=== PATIENT | female | born 1930 | race Caucasian/White ===

== ENCOUNTER 2018-05-08 16:26 | Inpatient (IN) ==
[2018-05-08] MEDS ORDERED: 0.9 % Sodium Chloride 500 ML IVC ONE (16:55)
--- NOTE | 2018-05-08 17:21 | Emergency Department Note ---
Disposition Clinical Impression: Influenza Disposition: Admitted As Inpatient Condition: Fair Forms: ED Satisfaction Letter Time of Disposition: 18:48 General Adult HPI - General Chief complaint: ED Upper Respiratory Infection Stated complaint: Flu Like Symptoms Time Seen by Provider: 05/08/18 16:27 Source: patient, EMS Limitations: no limitations Nursing Notes Reviewed: Yes Vital Signs Reviewed: Yes - History of Present Illness HPI Narrative: Patient is an 88-year-old female presenting to [facility] ED for one week history of malaise, nausea/vomiting/diarrhea productive cough. Patient states that she was seen at this facility by her primary care edu randall on May 04 and was diagnosed with upper respiratory infection for which she was given azithromycin. Patient states since this time her symptoms have gotten worse and that she is unable to keep any food down at this point. She will examination the patient is sitting upright in hospital but she is awake, alert, engaged conversation answering questions appropriately. Patient is noncyanotic, nondiaphoretic, in no acute distress, and no overt focal neurological deficits appreciated. Patient states that she has no past medical history, no surgical history, no known drug allergies. In addition to the symptoms listed above, patient denies headaches, vision change, tinnitus, new neck or back pain, chest pain/shortness of breath, abdominal pains, numbness and paresthesias in the extremities, or difficulty with ambulation. Onset (ago): week(s) Location: abdomen Radiation: non-radiation Pain Scale: 0 - Related Data Allergies Allergy/AdvReac Type Severity Reaction Status Date / Time No Known Allergies Allergy Verified 05/08/18 16:32 All systems ED: reviewed and negative except as stated. Review of Systems: As Per HPI Past Medical History - Past Medical History Source: patient, obtained from family Medical history: Reports: arthritis, dementia, hypertension, osteoporosis, other Psychiatric history: Reports: no psych history - Social History Smoking Status: Never smoker Smokeless Tobacco Status: No Alcohol use: Reports: none Drug use: Reports: none Physical Exam - General Limitations: no limitations General appearance: alert, in no apparent distress - Head Head exam: atraumatic, normocephalic, normal inspection - Eye Eye exam: Present: normal appearance, PERRL, EOMI. Absent: scleral icterus - Neck Neck exam: Present: normal inspection, trachea midline - Respiratory Respiratory exam: Present: normal lung sounds bilaterally. Absent: respiratory distress, wheezes, stridor, accessory muscle use, prolonged expiratory phase - Cardiovascular Cardiovascular exam: Present: regular rate, normal rhythm, normal heart sounds, +S1, +S2. Absent: systolic murmur, diastolic murmur, JVD, +S3, +S4 - Abdominal Exam Abdominal exam: Present: soft, Non-Tender, normal bowel sounds. Absent: tenderness, distention, guarding, rebound, rigidity - Extremities Exam Extremities exam: Present: normal inspection. Absent: pedal edema - Neurological Exam Neurological exam: Present: alert, oriented X3 - Psychiatric Psychiatric exam: Present: normal affect, normal mood - Skin Skin exam: Present: warm, dry, intact, normal color. Absent: cyanosis, diaphoresis, erythema, pallor, mottled Course Course Narrative: CBC, BMP, troponin, chest x-ray, urinalysis, rapid flu swab will be performed in order to assess for potential underlying pathology. Patient will be given 500 mL of 0.9 normal saline for fluid hydration. Vital Signs Temperature 101.3 F H 05/08/18 16:32 Pulse Rate 85 05/08/18 16:32 Respiratory Rate 14 05/08/18 16:32 Blood Pressure 133/79 05/08/18 16:32 O2 Sat by Pulse Oximetry 97 05/08/18 16:32 Temperature 101.3 F H 05/08/18 16:32 Pulse Rate 85 05/08/18 16:32 Respiratory Rate 14 05/08/18 16:32 Blood Pressure 133/79 05/08/18 16:32 O2 Sat by Pulse Oximetry 97 05/08/18 16:32 Oxygen Delivery Oxygen Delivery Room Air Medical Decision Making - [facility] Narrative Medical decision making narrative: Patient positive for influenza as well as urinary tract infection Patient laboratory and imaging values otherwise otherwise unremarkable for acute pathology. Patient will be admitted to [facility] service for fluid hydration and further evaluation and management of influenza. Patient will be started on vancomycin for antibiotic coverage for potential coinfection/superinfection with Staphylococcus aureus bacteria. Patient started on 1 g of Rocephin for management of UTI. Admission planning discussed at length with patient and family members and they verbalized their understanding and agreement this plan. Patient is intermittently medically stable time of admission. - Lab Data Lab results reviewed: Yes I reviewed the patient's lab results. Result diagrams: 05/08/18 17:06 05/08/18 17:06 Lab Results 05/08/18 05/08/18 Range/Units 17:06 17:06 WBC 5.4 (4.3-11.1) K/mcL RBC 4.47 (3.82-4.97) M/mcL Hgb 12.6 (11.5-15.4) g/dL Hct 38.8 (35.3-44.9) % MCV 86.8 (83.0-100.0) fL MCH 28.2 (28.0-33.3) pg MCHC 32.5 (31.6-35.5) g/dL RDW 13.6 (11.5-14.5) % Plt Count 232 (140-400) K/mcL MPV 9.6 (9.4-12.4) fL Immature Gran % 0.4 (0-4) % Seg Neutrophils % 72.4 % Lymphocytes % 16.9 % Monocytes % 9.9 % Eosinophils % 0.2 % Basophils % 0.2 % Neutrophils # 3.9 (1.6-8.9) K/mcL Lymphocytes # 0.9 (0.6-4.6) K/mcL Monocytes # 0.5 (0.0-1.3) K/mcL Eosinophils # 0.0 (0.0-0.6) K/mcL Basophils # 0.0 (0.0-0.2) K/mcL Sodium 131 L (136-145) mEq/L Potassium 4.1 (3.5-5.1) mEq/L Chloride 99 (98-107) mEq/L Carbon Dioxide 25 (23-29) mEq/L BUN 27 H (8-23) mg/dL Creatinine 1.08 (0.60-1.20) mg/dL Est GFR ( Amer) 58 L (> 60) Est GFR (Non-Af Amer) 48 L (> 60) BUN/Creatinine Ratio 25 (6-26) Glucose 120 H (70-105) mg/dL Calculated Osmolality 278 L (280-300) Calcium 10.2 (8.6-10.3) mg/dL Troponin I < 0.03 (< 0.04) ng/mL - Radiology Data Radiology results reviewed: Yes I reviewed the patient's radiology results. Chest X-Ray 05/08/18 16:49 IMPRESSION: No acute findings. D/ / Roshan Wolff MD / Roshan Wolff MD Interpreting Provider: Roshan Wolff MD
[2018-05-08 17:23] LABS: Basophils % 0.2 %; Eosinophils % 0.2 %; Hematocrit 38.8 % (35.3-44.9); Hemoglobin 12.6 g/dL (11.5-15.4); Immature Granulocytes % 0.4 % (0-4); Lymphocytes # 0.9 K/mcL (0.6-4.6); Lymphocytes % 16.9 %; Mean Corpuscular HGB Conc 32.5 g/dL (31.6-35.5); Mean Corpuscular Hemoglobin 28.2 pg (28.0-33.3); Mean Corpuscular Volume 86.8 fL (83.0-100.0); Mean Platelet Volume 9.6 fL (9.4-12.4); Monocytes # 0.5 K/mcL (0.0-1.3); Monocytes % 9.9 %; Neutrophils # 3.9 K/mcL (1.6-8.9); Platelet Count 232 K/mcL (140-400); Red Blood Count 4.47 M/mcL (3.82-4.97); Red Cell Distribution Width 13.6 % (11.5-14.5); Segmented Neutrophils % 72.4 %
[2018-05-08 17:44] LABS: BUN/Creatinine Ratio 25 (6-26); Blood Urea Nitrogen 27 mg/dL (8-23); Calcium 10.2 mg/dL (8.6-10.3); Carbon Dioxide 25 mEq/L (23-29); Chloride 99 mEq/L (98-107); Glucose 120 mg/dL (70-105); Osmolality,Calculated 278 (280-300); Potassium 4.1 mEq/L (3.5-5.1); Sodium 131 mEq/L (136-145); Troponin I < 0.03 ng/mL (< 0.04); eGFR For Non-African Americans 48 (> 60)
[2018-05-08 18:38] LABS: Bilirubin,Urine Negative (Negative); Blood,Urine Negative (Negative); Clarity,Urine Clear (Clear); Color,Urine Yellow (Yellow); Glucose,Urine (UA) Normal (Normal); Ketones,Urine Negative (Negative); Leukocyte Esterase,Urine Moderate (Negative); Nitrite,Urine Positive (Negative); Protein,Urine Trace mg/dL (Neg-Trace); Specific Gravity,Urine 1.012 (1.010-1.025); Urobilinogen,Urine Normal (Normal)
[2018-05-08 18:42] LABS: Bacteria,Urine Moderate per hpf (None-Few); Hyaline Casts,Urine None Seen per lpf (None-Few); RBC,Urine 0-3 per hpf (0-3); Squamous Epithelial Cell,Urine Moderate per lpf (None-Few); WBC,Urine 15-30 per hpf (0-3)
[2018-05-08] MEDS ORDERED: Naloxone 0.4 MG/ML INJ IVP PRN (18:42)
[2018-05-08] MEDS ORDERED: cefTRIAXone 1,000 MG in Water for inj. (sterile) 20 ML 10 ML IVP ONE (18:45)
--- NOTE | 2018-05-08 18:49 | Emergency Department Note ---
Disposition Clinical Impression: Influenza A UTI (urinary tract infection) Qualifiers: Urinary tract infection type: site unspecified Hematuria presence: without hematuria Qualified Code(s): N39.0 - Urinary tract infection, site not specified Disposition: Admitted As Inpatient Condition: Good Referrals: Shakeel Cazares DO [Primary Care Provider] - Forms: ED Satisfaction Letter General Adult HPI - General Chief complaint: ED Upper Respiratory Infection Stated complaint: Flu Like Symptoms Time Seen by Provider: 05/08/18 16:27 Source: patient, EMS Limitations: no limitations - History of Present Illness Location: abdomen Pain Scale: 0 - Related Data Allergies Allergy/AdvReac Type Severity Reaction Status Date / Time No Known Allergies Allergy Verified 05/08/18 16:32 Past Medical History - Past Medical History Medical history: Reports: arthritis, dementia, hypertension, osteoporosis, other Psychiatric history: Reports: no psych history - Social History Smoking Status: Never smoker Smokeless Tobacco Status: No Alcohol use: Reports: none Drug use: Reports: none Physical Exam - General Limitations: no limitations General appearance: alert, in no apparent distress Course Vital Signs Temperature 101.3 F H 05/08/18 16:32 Pulse Rate 85 05/08/18 16:32 Respiratory Rate 14 05/08/18 16:32 Blood Pressure 133/79 05/08/18 16:32 O2 Sat by Pulse Oximetry 97 05/08/18 16:32 Temperature 101.3 F H 05/08/18 16:32 Pulse Rate 85 05/08/18 16:32 Respiratory Rate 14 05/08/18 16:32 Blood Pressure 133/79 05/08/18 16:32 O2 Sat by Pulse Oximetry 97 05/08/18 16:32 Oxygen Delivery Oxygen Delivery Room Air Medical Decision Making - Lab Data Result diagrams: 05/08/18 17:06 05/08/18 17:06 Lab Results 05/08/18 05/08/18 05/08/18 Range/Units 17:06 17:06 18:18 WBC 5.4 (4.3-11.1) K/mcL RBC 4.47 (3.82-4.97) M/mcL Hgb 12.6 (11.5-15.4) g/dL Hct 38.8 (35.3-44.9) % MCV 86.8 (83.0-100.0) fL MCH 28.2 (28.0-33.3) pg MCHC 32.5 (31.6-35.5) g/dL RDW 13.6 (11.5-14.5) % Plt Count 232 (140-400) K/mcL MPV 9.6 (9.4-12.4) fL Immature Gran % 0.4 (0-4) % Seg Neutrophils % 72.4 % Lymphocytes % 16.9 % Monocytes % 9.9 % Eosinophils % 0.2 % Basophils % 0.2 % Neutrophils # 3.9 (1.6-8.9) K/mcL Lymphocytes # 0.9 (0.6-4.6) K/mcL Monocytes # 0.5 (0.0-1.3) K/mcL Eosinophils # 0.0 (0.0-0.6) K/mcL Basophils # 0.0 (0.0-0.2) K/mcL Sodium 131 L (136-145) mEq/L Potassium 4.1 (3.5-5.1) mEq/L Chloride 99 (98-107) mEq/L Carbon Dioxide 25 (23-29) mEq/L BUN 27 H (8-23) mg/dL Creatinine 1.08 (0.60-1.20) mg/dL Est GFR ( Amer) 58 L (> 60) Est GFR (Non-Af Amer) 48 L (> 60) BUN/Creatinine Ratio 25 (6-26) Glucose 120 H (70-105) mg/dL Calculated Osmolality 278 L (280-300) Calcium 10.2 (8.6-10.3) mg/dL Troponin I < 0.03 (< 0.04) ng/mL Urine Color Yellow (Yellow) Urine Clarity Clear (Clear) Urine pH 7.0 (5.0-8.0) pH Units Ur Specific [place] 1.012 (1.010-1.025) Urine Protein Trace (Neg-Trace) mg/dL Urine Glucose (UA) Normal (Normal) mg/dL Urine Ketones Negative (Negative) mg/dL Urine Blood Negative (Negative) Urine Nitrite Positive A (Negative) Urine Bilirubin Negative (Negative) Urine Urobilinogen Normal (Normal) mg/dL Ur Leukocyte Esterase Moderate H (Negative) Urine Microscopic RBC 0-3 (0-3) per hpf Urine Microscopic WBC 15-30 H (0-3) per hpf Ur Squamous Epith Cells Moderate H (None-Few) per lpf Urine Bacteria Moderate H (None-Few) per hpf Hyaline Casts None Seen (None-Few) per lpf Ur Culture Indicated? YES A (NO) Attestation Statement - Attestation Attestation: I examined this patient and my medical decision-making was reviewed with the Resident Physician. I agree with the documented findings, disposition and treatment plan as described except to the extent set forth below. 88 edward old female present to the ED with complaints of fever and weakness and states taht she has been on ABX for UTI and bronchits and not improving IT apperas she is flu positive and has UTI. We will place her on vanco and rocephin therapy and admit to medicine.
--- NOTE | 2018-05-08 18:58 | Internal Med History&Physical ---
Date of Encounter: 05/08/18 Time of Encounter: 18:50 Internal Medicine - H&P: HPI Chief complaint: coughing, fevers, nausea and vomiting for a couple of days History of present illness: Ms. Peña is a 88 year old female with pmh of hypertension, dyslipidemia, dementia presenting with complaints of coughing, fevers, nausea, vomiting and diarrhea for one week duration. Patient had been at her usual state of her health per her daughter went to a resutaurant over the weekend and began to cough on friday. Symptoms progressed to involve, nausea, vomiting and diarrhea. She went to her PCP who prescribed a z kings which she took for the last 3 days but her symptoms did not resolve. She comes in today with fevers and worsening cough. she denies any abdominal. 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 In the ER, she had a temp of 101 and influenza A swab was positive. she is being admitted for further management Past Med Surg Social Fam HX - Past Medical History Medical history: arthritis, dementia, hypertension, osteoporosis, other Psychiatric history: no psych history - Social History Smoking Status: Never smoker Smokeless Tobacco Status: No Alcohol use: none Drug use: none Internal Medicine - H&P: Meds Allergy/AdvReac Type Severity Reaction Status Date / Time No Known Allergies Allergy Verified 05/08/18 16:32 All Systems PM: A 10-system review of systems was performed and is negative for pertinent findings except as documented above in the HPI. - Constitutional Constitutional: lethargy, malaise, no chills, no night sweats - EENT Eyes: no change in vision, no discharge, no pain, no photophobia Ears: no ear discharge, no ear pain, no tinnitus Nose, mouth and throat: no dysphagia, no nasal discharge, no neck pain, no sore throat - Cardiovascular Cardiovascular ROS IM: no chest pain, no diaphoresis, no dyspnea, no lightheadedness, no palpitations, no syncope - Respiratory Respiratory: cough, no dyspnea, no wheezing, no excessive phlegm production - Gastrointestinal Gastrointestinal: diarrhea, no abdominal pain, no hematemesis, no hematochezia, no melena, no nausea, no vomiting - Genitourinary Genitourinary: no change in urinary stream, no dysuria, no flank pain, no hematuria - Musculoskeletal Musculoskeletal ROS IM: no numbness, no tingling - Integumentary Integumentary IM: no rash, no unusual bruising - Neurological Neurological ROS: no confusion, no convulsions, no focal weakness, no numbness, no tingling, no tremor(s) - Hematologic/Lymphatic Hematologic/Lymphatic: no easy bruising - Constitutional Vitals: Temp Pulse Resp BP Pulse Ox 101.3 F H 85 14 133/79 97 05/08/18 16:32 05/08/18 16:32 05/08/18 16:32 05/08/18 16:32 05/08/18 16:32 Exam: NAD - Head Head exam: Present: atraumatic, normocephalic - Eye Eye exam: Present: PERRL, conjuntiva pink, sclera anicteric Pupils: Present: PERRL - Neck Neck exam general surgery: Present: supple, trachea midline. Absent: lymphadenopathy - Respiratory Respiratory exam: Present: CTAB. Absent: accessory muscle use, rales, rhonchi, wheezes - Cardiovascular Cardiovascular exam: Present: RRR, +S1, +S2. Absent: diastolic murmur, gallop, rubs, systolic murmur - GI/Abdominal GI/Abdominal exam: Present: normal bowel sounds, soft, no peritoneal signs. Absent: distended, tenderness - Extremities Exam Extremities exam: Present: warm, radial pulses palpable and symmetrical. Absent: calf tenderness, cyanotic, pedal edema - Neurological Exam Neurological exam: Present: CN II-XII intact, oriented X3, no focal deficits. Absent: pronater drift, facial droop, speech deficit - Skin Skin exam: Present: dry, intact Internal Med - H&P Results - Labs CBC & Chem 7: 05/08/18 17:06 05/08/18 17:06 Labs: Short CBC 05/08/18 Range/Units 17:06 WBC 5.4 (4.3-11.1) K/mcL Hgb 12.6 (11.5-15.4) g/dL Hct 38.8 (35.3-44.9) % Plt Count 232 (140-400) K/mcL Neutrophils # 3.9 (1.6-8.9) K/mcL BMP 05/08/18 17:06 Sodium 131 L Potassium 4.1 Chloride 99 Carbon Dioxide 25 BUN 27 H Creatinine 1.08 Glucose 120 H Calcium 10.2 Cardiac Enzymes 05/08/18 Range/Units 17:06 Troponin I < 0.03 (< 0.04) ng/mL Urine 05/08/18 Range/Units 18:18 Urine Color Yellow (Yellow) Urine Clarity Clear (Clear) Urine pH 7.0 (5.0-8.0) pH Units Ur Specific [place] 1.012 (1.010-1.025) Urine Protein Trace (Neg-Trace) mg/dL Urine Glucose (UA) Normal (Normal) mg/dL - Impressions ITS Impressions Chest X-Ray 05/08/18 16:49 IMPRESSION: No acute findings. D/ / Roshan Wolff MD / Roshan Wolff MD Interpreting Provider: Roshan Wolff MD - Assessment and plan (1) Influenza A Current Visit: Yes Status: Acute Assessment and plan: Pt comes in with fevers, nausea, vomiting , coughing and weakness and was recently treated with antibiotics for bronchitis/ UTI Nasal swab came back positive for influenza A. Will start on oseltamivir. Pt was febrile up to 102 so will obtain blood cultures and cover empirically with zosyn in case she has a brewing infection (2) UTI (urinary tract infection) Current Visit: Yes Status: Acute Assessment and plan: Urinalysis showed mutliple WBCs. Continue zosyn. Follow up blood and urine cultures Qualifiers: Urinary tract infection type: site unspecified Hematuria presence: without hematuria Qualified Code(s): N39.0 - Urinary tract infection, site not specified (3) Fever Current Visit: Yes Status: Acute Assessment and plan: Pt febrile up to 102 possibly 2/2 to influenza but r/o sepsis started on zosyn. follow blood and urine cultures. D/C antibiotics if cultures negative Qualifiers: Qualified Code(s): R50.9 - Fever, unspecified (4) Hypertension Current Visit: Yes Status: Acute Assessment and plan: Continue lisinopril and metoprolol Qualifiers: Hypertension type: essential hypertension Qualified Code(s): I10 - Essential (primary) hypertension (5) Dementia Current Visit: Yes Status: Acute Assessment and plan: Continue aricept and namenda Qualifiers: Qualified Code(s): F03.90 - Unspecified dementia without behavioral disturbance (6) DVT prophylaxis Current Visit: Yes Status: Acute Assessment and plan: Heparin sc - Time Spent With Patient Total time spent is greater than 50% in coordination of care (as documented) at patient's floor/unit and/or counseling patient:
[2018-05-08] MEDS ORDERED: Acetaminophen 325 MG TABLET PO PRN (19:23)
[2018-05-08] MEDS ORDERED: Ondansetron 4 MG/2 ML VIAL IVP PRN (19:23)
[2018-05-08] MEDS: 0.9 % Sodium Chloride 1,000 ML IVC SCH (19:24)
[2018-05-08] MEDS: Piperacillin/Tazobactam 3.375 GM in 0.9 % Sodium Chloride Mini Bag 100 ML IVPB SCH (19:25)
[2018-05-08] MEDS: traZODone 50 MG TABLET PO SCH (21:30)
[2018-05-08] MEDS: Oseltamivir Phosphate 30 MG CAPSULE PO SCH (21:30)
[2018-05-09] MEDS: Piperacillin/Tazobactam 3.375 GM in 0.9 % Sodium Chloride Mini Bag 100 ML IVPB SCH ×3 (03:22→21:24)
[2018-05-09] MEDS: 0.9 % Sodium Chloride 1,000 ML IVC SCH ×2 (04:31→15:11)
[2018-05-09 04:45] LABS: Basophils % 0.2 %; Eosinophils % 0.2 %; Hematocrit 33.4 % (35.3-44.9); Immature Granulocytes % 0.2 % (0-4); Lymphocytes # 1.7 K/mcL (0.6-4.6); Lymphocytes % 32.5 %; Mean Corpuscular HGB Conc 32.6 g/dL (31.6-35.5); Mean Corpuscular Hemoglobin 28.2 pg (28.0-33.3); Mean Corpuscular Volume 86.3 fL (83.0-100.0); Mean Platelet Volume 9.8 fL (9.4-12.4); Monocytes # 0.6 K/mcL (0.0-1.3); Monocytes % 11.1 %; Platelet Count 203 K/mcL (140-400); Red Blood Count 3.87 M/mcL (3.82-4.97); Red Cell Distribution Width 13.6 % (11.5-14.5); Segmented Neutrophils % 55.8 %
[2018-05-09 04:51] LABS: Hemoglobin 10.9 g/dL (11.5-15.4)
[2018-05-09 05:03] LABS: BUN/Creatinine Ratio 23 (6-26); Blood Urea Nitrogen 21 mg/dL (8-23); Calcium 9.4 mg/dL (8.6-10.3); Carbon Dioxide 23 mEq/L (23-29); Chloride 104 mEq/L (98-107); Glucose 105 mg/dL (70-105); Magnesium 1.6 mg/dL (1.6-2.6); Osmolality,Calculated 281 (280-300); Phosphorous 2.1 mg/dL (2.7-4.5); Potassium 3.8 mEq/L (3.5-5.1); Sodium 134 mEq/L (136-145); eGFR For Non-African Americans 57 (> 60)
--- NOTE | 2018-05-09 08:45 | Internal Med Progress Note ---
Hospitalist Progress Note - Encounter Date of Encounter: 05/09/18 Time of Encounter: 11:00 - Subjective Interval History: Patient is a 88-year-old female with a past medical history significant for dementia brought in by family due to nausea/vomiting/diarrhea and weakness found to be positive for influenza A in addition to concerns for UTI with pyuria on urinalysis; cultures pending - Exam Vitals: Temp Pulse Resp BP Pulse Ox 98.7 F 74 15 131/74 91 05/09/18 08:13 05/09/18 08:13 05/09/18 08:13 05/09/18 08:13 05/09/18 08:13 Exam: Gen.: Nonacute distress, alert ENT: Mucosal membranes moist Respiratory: Patient with bilateral rhonchi Cardiovascular: Normal S1 and S2 regular rate rhythm no murmurs rubs or gallops Abdomen: Soft, nontender and nondistended with positive bowel sounds Extremities: No lower extremity edema Skin: Normal color - Assessment and Plan (1) Influenza A Current Visit: Yes Status: Acute Assessment and Plan: Patient with MAXIMUM TEMPERATURE of 101.3 in the ER positive for influenza A Will continue Tamiflu started in the ER and supportive care (2) UTI (urinary tract infection) Current Visit: Yes Status: Acute Assessment and Plan: Urinalysis showed mutliple WBCs and patient with MAXIMUM TEMPERATURE of 101.3 Will continue zosyn; cultures pending (3) Hypertension Current Visit: Yes Status: Acute Assessment and Plan: Continue lisinopril and metoprolol (4) Dementia Current Visit: Yes Status: Acute Assessment and Plan: Continue aricept and namenda (5) HLD (hyperlipidemia) Current Visit: Yes Status: Acute Assessment and Plan: Continue statin - Time Spent with Patient Total time spent is greater than 50% in coordination of care (as documented) at patient's floor/unit and/or counseling patient: Internal Medicine: Result - Labs CBC & Chem 7: 05/09/18 04:14 05/09/18 04:14 Labs: Short CBC 05/08/18 05/09/18 Range/Units 17:06 04:14 WBC 5.4 5.3 (4.3-11.1) K/mcL Hgb 12.6 10.9 L D (11.5-15.4) g/dL Hct 38.8 33.4 L (35.3-44.9) % Plt Count 232 203 (140-400) K/mcL Neutrophils # 3.9 3.0 (1.6-8.9) K/mcL BMP 05/08/18 05/09/18 17:06 04:14 Sodium 131 L 134 L Potassium 4.1 3.8 Chloride 99 104 Carbon Dioxide 25 23 BUN 27 H 21 Creatinine 1.08 0.93 Glucose 120 H 105 Calcium 10.2 9.4 Cardiac Enzymes 05/08/18 Range/Units 17:06 Troponin I < 0.03 (< 0.04) ng/mL Urine 05/08/18 Range/Units 18:18 Urine Color Yellow (Yellow) Urine Clarity Clear (Clear) Urine pH 7.0 (5.0-8.0) pH Units Ur Specific [place] 1.012 (1.010-1.025) Urine Protein Trace (Neg-Trace) mg/dL Urine Glucose (UA) Normal (Normal) mg/dL - Impressions Impressions Chest X-Ray 05/08/18 16:49 IMPRESSION: No acute findings. D/ / Roshan Wolff MD / Roshan Wolff MD Interpreting Provider: Roshan Wolff MD Consult Discharge Plan - Plan Referrals: Shakeel Cazares DO [Primary Care Provider] - (2) UTI (urinary tract infection) Qualifiers: Urinary tract infection type: site unspecified Hematuria presence: without hematuria Qualified Code(s): N39.0 - Urinary tract infection, site not specified (3) Hypertension Qualifiers: Hypertension type: essential hypertension Qualified Code(s): I10 - Essential (primary) hypertension (4) Dementia Qualifiers: Qualified Code(s): F03.90 - Unspecified dementia without behavioral disturbance
[2018-05-09] MEDS: Oseltamivir Phosphate 30 MG CAPSULE PO SCH ×2 (10:12→21:25)
[2018-05-09] MEDS: Lisinopril 20 MG TABLET PO SCH (10:12)
[2018-05-09 11:58] LABS: Adenovirus Not Detected (Not Detect); Bordetella Pertussis Not Detected (Not Detect); Chlamydophila pneumoniae Not Detected (Not Detect); Coronavirus 229E Not Detected (Not Detect); Coronavirus HKU1 Not Detected (Not Detect); Coronavirus NL63 Not Detected (Not Detect); Coronavirus OC43 Not Detected (Not Detect); Human Metapneumovirus Not Detected (Not Detect); Human Rhinovirus/Enterovirus Not Detected (Not Detect); Influenza A Subtype 2009 H1 Not Detected (Not Detect); Influenza A Untypeable Not Detected (Not Detect); Influenza B Not Detected (Not Detect); Mycoplasma pneumoniae Not Detected (Not Detect); Parainfluenza Virus 1 Not Detected (Not Detect); Parainfluenza Virus 2 Not Detected (Not Detect); Parainfluenza Virus 3 Not Detected (Not Detect); Parainfluenza Virus 4 Not Detected (Not Detect); Respiratory Syncytial Virus Not Detected (Not Detect)
[2018-05-09] MEDS: *HR* Heparin 5,000 UNIT/ML VIAL SQ SCH ×2 (14:07→21:25)
[2018-05-09] MEDS: traZODone 50 MG TABLET PO SCH (21:24)
[2018-05-10] MEDS: *HR* Heparin 5,000 UNIT/ML VIAL SQ SCH ×3 (05:58→21:27)
[2018-05-10] MEDS: Piperacillin/Tazobactam 3.375 GM in 0.9 % Sodium Chloride Mini Bag 100 ML IVPB SCH ×3 (05:58→18:20)
[2018-05-10] MEDS: Oseltamivir Phosphate 30 MG CAPSULE PO SCH ×2 (08:58→21:27)
[2018-05-10] MEDS: Lisinopril 20 MG TABLET PO SCH (08:58)
--- NOTE | 2018-05-10 10:18 | Internal Med Progress Note ---
Hospitalist Progress Note - Encounter Date of Encounter: 05/10/18 Time of Encounter: 11:00 - Subjective Interval History: Patient is a 88-year-old female with a past medical history significant for dementia brought in by family due to nausea/vomiting/diarrhea and weakness found to be positive for influenza A in addition to concerns for UTI with pyuria on urinalysis; cultures pending - Exam Vitals: Temp Pulse Resp BP Pulse Ox 98.4 F 70 17 137/75 93 05/10/18 07:17 05/10/18 07:17 05/10/18 07:17 05/10/18 07:17 05/10/18 07:17 Exam: Gen.: Nonacute distress, alert ENT: Mucosal membranes moist Respiratory: Patient with bilateral rhonchi Cardiovascular: Normal S1 and S2 regular rate rhythm no murmurs rubs or gallops Abdomen: Soft, nontender and nondistended with positive bowel sounds Extremities: No lower extremity edema Skin: Normal color - Assessment and Plan (1) Influenza A Current Visit: Yes Status: Acute Assessment and Plan: Patient with MAXIMUM TEMPERATURE of 101.3 in the ER positive for influenza A She has been afebrile over the last 24 hours Continue day 2 of Tamiflu in addition to supportive care (2) UTI (urinary tract infection) Current Visit: Yes Status: Acute Assessment and Plan: Urinalysis showed mutliple WBCs and patient with MAXIMUM TEMPERATURE of 101.3 on admission Urine cultures in progress so far showing gram-negative rods; blood cultures negative to date Will continue day 2 of Zosyn (3) Hypertension Current Visit: Yes Status: Acute Assessment and Plan: Continue lisinopril and metoprolol (4) Dementia Current Visit: Yes Status: Acute Assessment and Plan: Continue aricept and namenda (5) HLD (hyperlipidemia) Current Visit: Yes Status: Acute Assessment and Plan: Continue statin DVT Prophylaxis: Heparin subcutaneous - Time Spent with Patient Total time spent is greater than 50% in coordination of care (as documented) at patient's floor/unit and/or counseling patient: Internal Medicine: Result - Labs CBC & Chem 7: 05/10/18 15:20 05/10/18 15:20 Consult Discharge Plan - Plan Referrals: Shakeel Cazares, [Primary Care Provider] - (2) UTI (urinary tract infection) Qualifiers: Urinary tract infection type: site unspecified Hematuria presence: without hematuria Qualified Code(s): N39.0 - Urinary tract infection, site not specified (3) Hypertension Qualifiers: Hypertension type: essential hypertension Qualified Code(s): I10 - Essential (primary) hypertension (4) Dementia Qualifiers: Qualified Code(s): F03.90 - Unspecified dementia without behavioral disturbance
[2018-05-10] MEDS: 0.9 % Sodium Chloride 1,000 ML IVC SCH (12:05)
[2018-05-10 15:59] LABS: Basophils % 0.4 %; Eosinophils # 0.1 K/mcL (0.0-0.6); Eosinophils % 2.2 %; Hemoglobin 10.3 g/dL (11.5-15.4); Immature Granulocytes % 0.2 % (0-4); Lymphocytes % 44.2 %; Mean Corpuscular HGB Conc 32.2 g/dL (31.6-35.5); Mean Corpuscular Hemoglobin 28.1 pg (28.0-33.3); Mean Corpuscular Volume 87.2 fL (83.0-100.0); Mean Platelet Volume 9.9 fL (9.4-12.4); Monocytes # 0.4 K/mcL (0.0-1.3); Monocytes % 9.2 %; Platelet Count 170 K/mcL (140-400); Red Blood Count 3.67 M/mcL (3.82-4.97); Red Cell Distribution Width 13.8 % (11.5-14.5); Segmented Neutrophils % 43.8 %
[2018-05-10 16:20] LABS: BUN/Creatinine Ratio 21 (6-26); Blood Urea Nitrogen 17 mg/dL (8-23); Calcium 8.5 mg/dL (8.6-10.3); Carbon Dioxide 23 mEq/L (23-29); Chloride 107 mEq/L (98-107); Glucose 97 mg/dL (70-105); Osmolality,Calculated 283 (280-300); Potassium 3.5 mEq/L (3.5-5.1); Sodium 136 mEq/L (136-145); eGFR For Non-African Americans > 60 (> 60)
[2018-05-10] MEDS: Ipratropium/Albuterol Neb 3 ML IH SCH (20:07)
[2018-05-10] MEDS: traZODone 50 MG TABLET PO SCH (21:26)
[2018-05-11] MEDS: Ipratropium/Albuterol Neb 3 ML IH SCH ×6 (00:35→20:27)
[2018-05-11] MEDS: Piperacillin/Tazobactam 3.375 GM in 0.9 % Sodium Chloride Mini Bag 100 ML IVPB SCH ×3 (03:54→18:24)
[2018-05-11] MEDS: *HR* Heparin 5,000 UNIT/ML VIAL SQ SCH ×3 (05:39→20:06)
[2018-05-11] MEDS: Oseltamivir Phosphate 30 MG CAPSULE PO SCH ×2 (08:49→20:05)
[2018-05-11] MEDS: Lisinopril 20 MG TABLET PO SCH (08:49)
[2018-05-11] MEDS: 0.9 % Sodium Chloride 1,000 ML IVC SCH (08:49)
--- NOTE | 2018-05-11 09:54 | Internal Med Progress Note ---
Hospitalist Progress Note - Encounter Date of Encounter: 05/11/18 Time of Encounter: 11:00 - Subjective Interval History: Patient is a 88-year-old female with a past medical history significant for dementia brought in by family due to nausea/vomiting/diarrhea and weakness found to be positive for influenza A in addition to UTI with Klebsiella pneumonia/E scherichia coli PT/OT consulted for recommendations for home safety/placement - Exam Vitals: Temp Pulse Resp BP Pulse Ox 98.3 F 71 16 127/75 97 05/11/18 05:56 05/11/18 05:56 05/11/18 07:44 05/11/18 05:56 05/11/18 07:44 Exam: Gen.: Nonacute distress, alert ENT: Mucosal membranes moist Respiratory: Patient with bilateral rhonchi Cardiovascular: Normal S1 and S2 regular rate rhythm no murmurs rubs or gallops Abdomen: Soft, nontender and nondistended with positive bowel sounds Extremities: No lower extremity edema Skin: Normal color - Assessment and Plan (1) Influenza A Current Visit: Yes Status: Acute Assessment and Plan: Patient with MAXIMUM TEMPERATURE of 101.3 in the ER positive for influenza A She has been afebrile over 48 hours Continue day 3 of Tamiflu in addition to supportive care (2) UTI (urinary tract infection) Current Visit: Yes Status: Acute Assessment and Plan: Urinalysis showed mutliple WBCs and patient with MAXIMUM TEMPERATURE of 101.3 on admission Urine cultures positive for Klebsiella pneumonia and Escherichia coli Will continue day 3 of Zosyn (3) Hypertension Current Visit: Yes Status: Acute Assessment and Plan: Continue lisinopril and metoprolol (4) Dementia Current Visit: Yes Status: Acute Assessment and Plan: Continue aricept and namenda (5) HLD (hyperlipidemia) Current Visit: Yes Status: Acute Assessment and Plan: Continue statin DVT Prophylaxis: Heparin subcutaneous - Time Spent with Patient Total time spent is greater than 50% in coordination of care (as documented) at patient's floor/unit and/or counseling patient: Internal Medicine: Result - Labs CBC & Chem 7: 05/11/18 11:24 05/11/18 11:24 Labs: Short CBC 05/10/18 Range/Units 15:20 WBC 4.6 (4.3-11.1) K/mcL Hgb 10.3 L (11.5-15.4) g/dL Hct 32.0 L (35.3-44.9) % Plt Count 170 (140-400) K/mcL Neutrophils # 2.0 (1.6-8.9) K/mcL BMP 05/10/18 15:20 Sodium 136 Potassium 3.5 Chloride 107 Carbon Dioxide 23 BUN 17 Creatinine 0.81 Glucose 97 Calcium 8.5 L - Impressions Impressions Chest X-Ray 05/10/18 13:13 IMPRESSION: No acute findings D/ / Larissa Quinones MD / Larissa Quinones MD Interpreting Provider: Larissa Quinones MD Consult Discharge Plan - Plan Referrals: Shakeel Cazares DO [Primary Care Provider] - (2) UTI (urinary tract infection) Qualifiers: Urinary tract infection type: site unspecified Hematuria presence: without hematuria Qualified Code(s): N39.0 - Urinary tract infection, site not specified (3) Hypertension Qualifiers: Hypertension type: essential hypertension Qualified Code(s): I10 - Essential (primary) hypertension (4) Dementia Qualifiers: Qualified Code(s): F03.90 - Unspecified dementia without behavioral disturb ance
[2018-05-11 11:44] LABS: Basophils % 0.2 %; Eosinophils # 0.1 K/mcL (0.0-0.6); Eosinophils % 1.3 %; Hematocrit 30.9 % (35.3-44.9); Hemoglobin 9.8 g/dL (11.5-15.4); Immature Granulocytes % 0.4 % (0-4); Lymphocytes # 1.2 K/mcL (0.6-4.6); Lymphocytes % 25.6 %; Mean Corpuscular HGB Conc 31.7 g/dL (31.6-35.5); Mean Corpuscular Hemoglobin 27.8 pg (28.0-33.3); Mean Corpuscular Volume 87.8 fL (83.0-100.0); Monocytes # 0.4 K/mcL (0.0-1.3); Monocytes % 9.1 %; Neutrophils # 2.8 K/mcL (1.6-8.9); Platelet Count 179 K/mcL (140-400); Red Blood Count 3.52 M/mcL (3.82-4.97); Red Cell Distribution Width 14.1 % (11.5-14.5); Segmented Neutrophils % 63.4 %
[2018-05-11 12:03] LABS: BUN/Creatinine Ratio 19 (6-26); Blood Urea Nitrogen 14 mg/dL (8-23); Calcium 8.6 mg/dL (8.6-10.3); Carbon Dioxide 20 mEq/L (23-29); Chloride 107 mEq/L (98-107); Glucose 123 mg/dL (70-105); Osmolality,Calculated 282 (280-300); Potassium 3.2 mEq/L (3.5-5.1); Sodium 135 mEq/L (136-145); eGFR For Non-African Americans > 60 (> 60)
[2018-05-11] MEDS: traZODone 50 MG TABLET PO SCH (20:04)
[2018-05-12] MEDS: Ipratropium/Albuterol Neb 3 ML IH SCH ×6 (00:18→20:30)
[2018-05-12] MEDS: 0.9 % Sodium Chloride 1,000 ML IVC SCH ×2 (03:46→22:58)
[2018-05-12] MEDS: Piperacillin/Tazobactam 3.375 GM in 0.9 % Sodium Chloride Mini Bag 100 ML IVPB SCH ×2 (03:46→11:51)
[2018-05-12] MEDS: *HR* Heparin 5,000 UNIT/ML VIAL SQ SCH ×3 (05:52→20:39)
[2018-05-12] MEDS: Lisinopril 20 MG TABLET PO SCH (08:31)
[2018-05-12] MEDS: Oseltamivir Phosphate 30 MG CAPSULE PO SCH ×2 (08:31→20:39)
--- NOTE | 2018-05-12 12:05 | Internal Med Progress Note ---
Hospitalist Progress Note - Encounter Date of Encounter: 05/12/18 Time of Encounter: 11:00 - Subjective Interval History: Patient is a 88-year-old female with a past medical history significant for dementia brought in by family due to nausea/vomiting/diarrhea and weakness found to be positive for influenza A in addition to UTI with Klebsiella pneumonia/E scherichia coli [facility] and [facility]conditioning - Exam Vitals: Temp Pulse Resp BP Pulse Ox 97.9 F 83 18 121/68 96 05/12/18 06:44 05/12/18 06:44 05/12/18 11:18 05/12/18 06:44 05/12/18 11:18 Exam: Gen.: Nonacute distress, alert ENT: Mucosal membranes moist Respiratory: Patient with bilateral rhonchi Cardiovascular: Normal S1 and S2 regular rate rhythm no murmurs rubs or gallops Abdomen: Soft, nontender and nondistended with positive bowel sounds Extremities: No lower extremity edema Skin: Normal color - Assessment and Plan (1) Goals of care, counseling/discussion Current Visit: Yes Status: Acute Assessment and Plan: Physical therapy/occupational therapy with recommendations for placement [facility] for [facility] and conditioning [facility]waiting [facility] to [facility] (2) Influenza A Current Visit: Yes Status: Acute Assessment and Plan: Patient with MAXIMUM TEMPERATURE of 101.3 in the ER positive for influenza A She has been afebrile over 48 hours Continue day 4 of Tamiflu in addition to supportive care (3) UTI (urinary tract infection) Current Visit: Yes Status: Acute Assessment and Plan: Urinalysis showed mutliple WBCs and patient with MAXIMUM TEMPERATURE of 101.3 on admission Urine cultures positive for Klebsiella pneumonia and Escherichia coli Will continue day 4 of Zosyn (4) Hypertension Current Visit: Yes Status: Acute Assessment and Plan: Continue lisinopril and metoprolol (5) Dementia Current Visit: Yes Status: Acute Assessment and Plan: Continue aricept and namenda (6) HLD (hyperlipidemia) Current Visit: Yes Status: Acute Assessment and Plan: Continue statin DVT Prophylaxis: Heparin subcutaneous - Time Spent with Patient Total time spent is greater than 50% in coordination of care (as documented) at patient's floor/unit and/or counseling patient: Internal Medicine: Result - Labs CBC & Chem 7: 05/12/18 12:50 05/12/18 12:50 Labs: BMP 05/11/18 11:24 Sodium 135 L Potassium 3.2 L Chloride 107 Carbon Dioxide 20 L BUN 14 Creatinine 0.75 Glucose 123 H Calcium 8.6 Consult Discharge Plan - Plan Referrals: Shakeel Cazares DO [Primary Care Provider] - (3) UTI (urinary tract infection) Qualifiers: Urinary tract infection type: site unspecified Hematuria presence: without hematuria Qualified Code(s): N39.0 - Urinary tract infection, site not specified (4) Hypertension Qualifiers: Hypertension type: essential hypertension Qualified Code(s): I10 - Essential (primary) hypertension (5) Dementia Qualifiers: Qualified Code(s): F03.90 - Unspecified dementia without behavioral disturbance
[2018-05-12 13:08] LABS: Basophils % 0.6 %; Eosinophils # 0.2 K/mcL (0.0-0.6); Eosinophils % 3.8 %; Hematocrit 33.5 % (35.3-44.9); Immature Granulocytes % 2.2 % (0-4); Lymphocytes # 1.6 K/mcL (0.6-4.6); Lymphocytes % 31.6 %; Mean Corpuscular HGB Conc 32.8 g/dL (31.6-35.5); Mean Corpuscular Hemoglobin 28.4 pg (28.0-33.3); Mean Corpuscular Volume 86.6 fL (83.0-100.0); Mean Platelet Volume 10.1 fL (9.4-12.4); Monocytes # 0.6 K/mcL (0.0-1.3); Monocytes % 11.5 %; Neutrophils # 2.5 K/mcL (1.6-8.9); Platelet Count 205 K/mcL (140-400); Red Blood Count 3.87 M/mcL (3.82-4.97); Red Cell Distribution Width 13.8 % (11.5-14.5); Segmented Neutrophils % 50.3 %
[2018-05-12 13:24] LABS: BUN/Creatinine Ratio 16 (6-26); Blood Urea Nitrogen 12 mg/dL (8-23); Calcium 8.6 mg/dL (8.6-10.3); Carbon Dioxide 20 mEq/L (23-29); Chloride 112 mEq/L (98-107); Glucose 119 mg/dL (70-105); Osmolality,Calculated 289 (280-300); Potassium 3.4 mEq/L (3.5-5.1); Sodium 139 mEq/L (136-145); eGFR For Non-African Americans > 60 (> 60)
[2018-05-12] MEDS: Amoxicillin/Clavulanate 500 MG TABLET PO SCH (15:40)
[2018-05-12] MEDS: traZODone 50 MG TABLET PO SCH (20:39)
[2018-05-13] MEDS: Ipratropium/Albuterol Neb 3 ML IH SCH ×6 (00:01→20:34)
[2018-05-13] MEDS: *HR* Heparin 5,000 UNIT/ML VIAL SQ SCH ×3 (05:37→21:20)
[2018-05-13] MEDS: Amoxicillin/Clavulanate 500 MG TABLET PO SCH ×2 (08:32→16:54)
[2018-05-13] MEDS: Lisinopril 20 MG TABLET PO SCH (08:32)
[2018-05-13] MEDS: Oseltamivir Phosphate 30 MG CAPSULE PO SCH (08:33)
--- NOTE | 2018-05-13 19:07 | Internal Med Progress Note ---
Hospitalist Progress Note - Encounter Date of Encounter: 05/13/18 Time of Encounter: 11:00 - Subjective Interval History: Patient is a 88-year-old female with a past medical history significant for dementia brought in by family due to nausea/vomiting/diarrhea and weakness found to be positive for influenza A in addition to UTI with Klebsiella pneumonia/E scherichia coli Awaiting placement to senior living facility on 05/14/18 for strengthening and reconditioning - Exam Vitals: Temp Pulse Resp BP Pulse Ox 98.2 F 85 16 137/78 92 05/13/18 14:37 05/13/18 14:37 05/13/18 15:55 05/13/18 14:37 05/13/18 15:55 Exam: Gen.: Nonacute distress, alert ENT: Mucosal membranes moist Respiratory: Patient with bilateral rhonchi Cardiovascular: Normal S1 and S2 regular rate rhythm no murmurs rubs or gallops Abdomen: Soft, nontender and nondistended with positive bowel sounds Extremities: No lower extremity edema Skin: Normal color - Assessment and Plan (1) Goals of care, counseling/discussion Current Visit: Yes Status: Acute Assessment and Plan: Physical therapy/occupational therapy with recommendations for placement senior living facility for strengthening and conditioning Awaiting placement to senior living facility on 05/14/18 (2) Influenza A Current Visit: Yes Status: Acute Assessment and Plan: Patient with MAXIMUM TEMPERATURE of 101.3 in the ER positive for influenza A She has been afebrile over 48 hours Continue day 5 of Tamiflu in addition to supportive care (3) UTI (urinary tract infection) Current Visit: Yes Status: Acute Assessment and Plan: Urinalysis showed mutliple WBCs and patient with MAXIMUM TEMPERATURE of 101.3 on admission Urine cultures positive for Klebsiella pneumonia and Escherichia coli Will continue day 5 of Zosyn (4) Hypertension Current Visit: Yes Status: Acute Assessment and Plan: Continue lisinopril and metoprolol (5) Dementia Current Visit: Yes Status: Acute Assessment and Plan: Continue aricept and namenda (6) HLD (hyperlipidemia) Current Visit: Yes Status: Acute Assessment and Plan: Continue statin DVT Prophylaxis: Heparin subcutaneous - Time Spent with Patient Total time spent is greater than 50% in coordination of care (as documented) at patient's floor/unit and/or counseling patient: Internal Medicine: Result - Labs CBC & Chem 7: 05/12/18 12:50 05/12/18 12:50 Consult Discharge Plan - Plan Referrals: Shakeel Cazares DO [Primary Care Provider] - (3) UTI (urinary tract infection) Qualifiers: Urinary tract infection type: site unspecified Hematuria presence: without hematuria Qualified Code(s): N39.0 - Urinary tract infection, site not specified (4) Hypertension Qualifiers: Hypertension type: essential hypertension Qualified Code(s): I10 - Essential (primary) hypertension (5) Dementia Qualifiers: Qualified Code(s): F03.90 - Unspecified dementia without behavioral disturbance
[2018-05-13] MEDS: traZODone 50 MG TABLET PO SCH (19:52)
[2018-05-14] MEDS: Ipratropium/Albuterol Neb 3 ML IH SCH ×5 (00:35→16:37)
[2018-05-14] MEDS: *HR* Heparin 5,000 UNIT/ML VIAL SQ SCH ×2 (05:29→14:14)
[2018-05-14] MEDS: Amoxicillin/Clavulanate 500 MG TABLET PO SCH ×2 (08:06→17:26)
[2018-05-14] MEDS: Lisinopril 20 MG TABLET PO SCH (08:07)
[2018-05-14 14:57] VITALS: BP 149/79
--- NOTE | 2018-05-14 15:45 | Discharge Summary ---
Orders not resulted at time of discharge: Pending orders 05/14/18 19:00 Potassium Routine Date of Encounter: 05/14/18 Time of Encounter: 11:00 - Discharge Diagnosis (1) Goals of care, counseling/discussion Priority: Secondary Status: Acute (2) Influenza A Priority: Primary Status: Acute (3) UTI (urinary tract infection) Priority: Primary Status: Acute Qualifiers: Urinary tract infection type: site unspecified Hematuria presence: without hematuria Qualified Code(s): N39.0 - Urinary tract infection, site not specified (4) Hypertension Priority: Secondary Status: Acute Qualifiers: Hypertension type: essential hypertension Qualified Code(s): I10 - Essential (primary) hypertension (5) Dementia Priority: Secondary Status: Acute Qualifiers: Qualified Code(s): F03.90 - Unspecified dementia without behavioral disturbance (6) HLD (hyperlipidemia) Priority: Secondary Status: Acute Qualifiers: Hyperlipidemia type: unspecified Qualified Code(s): E78.5 - Hyperlipidemia, unspecified Hospital course: Patient is a 88-year-old female with past medical history significant for hypertension, dyslipidemia, dementia presenting with complaints of coughing, fevers, nausea, vomiting and diarrhea for one week duration. Patient had been at her usual state of her health per her [facility] and began to cough on friday. Symptoms progressed to involve, nausea, vomiting and diarrhea. She went to her PCP who prescribed a z kings which she took for the last 3 days but her symptoms did not resolve. She presents to the ER with fevers and worsening cough. In the ER, she had a temp of 101 and influenza A swab was positive. During patients hospital stay her symptoms improved after being treated with a 5 day course of Tamiflu for influenza A. Patient was also treated for suspected urinary tract infection with IV antibiotics. She is medically stable to be discharged to the shelter facility for strengthening rehabilitation. - Time Spent with Patient Total time spent providing and/or coordinating discharge services: Less than 30 minutes - Discharge Medications Home Medications: Aspirin [Lo-Dose Aspirin EC] 81 mg PO DAILY 05/09/18 [History] Donepezil [Aricept] 5 mg PO HS 05/09/18 [History] Fenofibrate Nanocrystallized [Fenofibrate] 160 mg PO DAILY 05/09/18 [History] Lisinopril [Zestril] 20 mg PO DAILY 05/09/18 [History] Lovastatin 40 mg PO DAILY 05/09/18 [History] Memantine HCl 10 mg PO BID 05/09/18 [History] Metoprolol [Lopressor] 25 mg PO BID 05/09/18 [History] Multivit-Min/FA/Lycopen/Lutein [Centrum Silver Tablet] 1 tab PO DAILY 05/09/18 [History] Omeprazole [PriLOSEC] 20 mg PO DAILY 05/09/18 [History] Trazodone HCl 100 mg PO HS 05/09/18 [History] Triamterene/HCTZ 37.5/25mg [Dyazide] 1 tab PO DAILY 05/09/18 [History] Triazolam 0.25 mg PO HS PRN 05/09/18 [History] Allergies/Adverse Reactions: Allergy/AdvReac Type Severity Reaction Status Date / Time ciprofloxacin [From Cipro] Allergy Hives Verified 05/08/18 20:27 Date of admission: 05/11/18 07:52 Primary care physician: Shakeel Cazares Consults: 05/08/18 20:58 Consult to Nutrition [CONS] Routine Comment: Consulting Provider: NUTRITION Reason for Dietary Consult: MST Score Consult to Pastoral Services [CONS] Routine Comment: 05/10/18 13:13 Consult to Physical Therapy [CONS] Routine Comment: Evaluate, develop and implement POC Reason for Consult: home safety Does patient have active BEDREST order?: No Is patient medically & hemodynamically stable?: Yes OT [Consult to Occupational Therapy] [CONS] Routine Comment: Evaluate, develop and implement POC Reason for Consult: home safety Does patient have active BEDREST order?: No Is patient medically & hemodynamically stable?: Yes - Constitutional Vitals: Temp Pulse Resp BP Pulse Ox 98.1 F 98 14 149/79 94 05/14/18 14:55 05/14/18 14:55 05/14/18 14:55 05/14/18 14:55 05/14/18 14:55 Exam: Gen.: Nonacute distress, alert ENT: Mucosal membranes moist Respiratory: Patient with bilateral rhonchi Cardiovascular: Normal S1 and S2 regular rate rhythm no murmurs rubs or gallops Skin: Normal color - Patient Status Disposition: Transfer SNF Condition: Fair - Discharge Instructions Follow Up With: Shakeel Cazares DO [Primary Care Provider] -
--- NOTE | 2018-05-14 15:46 | Physician Discharge Referral ---
- Diagnosis (1) Goals of care, counseling/discussion Status: Acute (2) Influenza A Status: Acute (3) UTI (urinary tract infection) Status: Acute (4) Hypertension Status: Acute (5) Dementia Status: Acute (6) HLD (hyperlipidemia) Status: Acute - Transfer Medications Home Medications: Aspirin [Lo-Dose Aspirin EC] 81 mg PO DAILY 05/09/18 [History] Donepezil [Aricept] 5 mg PO HS 05/09/18 [History] Fenofibrate Nanocrystallized [Fenofibrate] 160 mg PO DAILY 05/09/18 [History] Lisinopril [Zestril] 20 mg PO DAILY 05/09/18 [History] Lovastatin 40 mg PO DAILY 05/09/18 [History] Memantine HCl 10 mg PO BID 05/09/18 [History] Metoprolol [Lopressor] 25 mg PO BID 05/09/18 [History] Multivit-Min/FA/Lycopen/Lutein [Centrum Silver Tablet] 1 tab PO DAILY 05/09/18 [History] Nitrofurantoin Macrocrystal [Nitrofurantoin] 100 mg PO Q12H 05/09/18 [History] Omeprazole [PriLOSEC] 20 mg PO DAILY 05/09/18 [History] Trazodone HCl 100 mg PO HS 05/09/18 [History] Triamterene/HCTZ 37.5/25mg [Dyazide] 1 tab PO DAILY 05/09/18 [History] Triazolam 0.25 mg PO HS PRN 05/09/18 [History] Allergies/Adverse Reactions: Allergy/AdvReac Type Severity Reaction Status Date / Time ciprofloxacin [From Cipro] Allergy Hives Verified 05/08/18 20:27 - Respiratory Orders Smoking Cessation: Smoking cessation has been advised. For more information, call the [place] Tobacco Quit Line at 9-870-YWSR-NOW. CERTIFICATION: I certify that the transfer of the above named patient to an Extended Care Facility is necessary for the continuing treatment of the diagnosis listed. The above information is true and accurate reflection of patient's current condition. Confidential - Redisclosure prohibited without a patient's written consent.
== END 2018-05-14 18:26 | disposition other institution (70) | DRG 194 ==
LOC: EMEROOARM 16:26 → 3ANU 16:26 → SUATTDRO 19:29 → 3ANU 20:18
PROVIDERS: ADMIT Student in an Organized Health Care Education/Training Program; ATTEND Hospitalist

== ENCOUNTER 2018-09-10 09:14 | Inpatient (IN) ==
--- NOTE | 2018-09-10 10:13 | Emergency Department Note ---
Disposition Clinical Impression: Dizziness Disposition: Admitted As Inpatient Condition: Fair Referrals: Shakeel Cazares DO [Primary Care Provider] - Forms: ED Satisfaction Letter Time of Disposition: 14:05 Dizziness HPI - General Chief Complaint: ED Dizziness Stated Complaint: dizziness Time Seen by Provider: 09/10/18 09:20 Source: patient, EMS Mode of arrival: EMS Limitations: no limitations Nursing Notes Reviewed: Yes Vital Signs Reviewed: Yes - History of Present Illness HPI Narrative: 88-year-old female with past medical history of CHF, [place], hypertension, hyperlipidemia presents to the emergency department with the complaint of dizziness for the past week. She states the dizziness has been slowly getting worse and gets worse when she stands and moves her head to the right or looks to the right. She does remember any inciting incident. The dizziness is better when she is lying down and when she has her eyes closed. She explains it as feeling as though she is to follow over because she is off balance and the room spinning around her. She has not feels that she is about to pass out. She has not been nauseous or vomited with this. The reason she came in today was because her children were concerned that it was not getting better and wanted her to get checked out. She denies headache, vision changes, chest pain, shortness of breath, abdominal pain, other symptoms at this time. - Related Data Home Medications Medication Instructions Recorded Confirmed Aspirin [Lo-Dose Aspirin EC] 81 mg PO DAILY 05/09/18 09/10/18 Donepezil [Aricept] 5 mg PO HS 05/09/18 06/10/18 Lisinopril [Zestril] 20 mg PO DAILY 05/09/18 06/10/18 Memantine HCl 10 mg PO BID 05/09/18 06/10/18 Metoprolol [Lopressor] 25 mg PO BID 05/09/18 06/10/18 Multivit-Min/FA/Lycopen/Lutein 1 tab PO DAILY 05/09/18 09/10/18 [Centrum Silver Tablet] Omeprazole [PriLOSEC] 20 mg PO DAILY 05/09/18 09/10/18 Trazodone HCl 100 mg PO HS 05/09/18 09/10/18 Nitrofurantoin [Macrodantin] 50 mg PO HS 06/05/18 06/10/18 Lovenox 40 mg SQ DAILY 06/09/18 06/10/18 Mag Hydrox/Al Hydrox/Simeth 30 ml PO Q4H PRN 06/09/18 06/10/18 [Maalox] MiraLAX 17 gm PO DAILY PRN 06/09/18 06/10/18 Tylenol 650 mg PO Q4H PRN 06/09/18 09/10/18 Previous Rx's Medication Instructions Recorded Azithromycin [Azithromycin 6-Tab 250 mg PO PER PKG DI #6 tab 06/09/18 Pack] Furosemide [Lasix] 20 mg PO DAILY PRN #30 tablet 06/09/18 Metoprolol XL (24 HR) Succ [Toprol 25 mg PO DAILY #60 tab.er.24h 06/09/18 Xl] Allergies Allergy/AdvReac Type Severity Reaction Status Date / Time ciprofloxacin [From Cipro] Allergy Hives Verified 06/10/18 06:03 All systems ED: reviewed and negative except as stated. Review of Systems: As Per HPI Constitutional: Denies: fever, chills, weakness Eyes: Denies: vision change Cardiovascular: Denies: chest pain, palpitations, dyspnea on exertion Respiratory: Denies: cough, dyspnea, wheezes Gastrointestinal: Denies: abdominal pain, nausea, vomiting Genitourinary: Denies: dysuria, hematuria Musculoskeletal: Denies: back pain, neck pain Integumentary: Denies: rash Neurological: Reports: vertigo. Denies: headache, weakness, numbness, paresthesias Endocrine: Denies: fatigue Past Medical History - Past Medical History Attestation: Yes The following information was validated with the patient. Source: patient, obtained from family Medical history: Reports: arthritis, CHF, dementia, GERD, hyperlipidemia, hypertension, myocardial infarction, osteoporosis, other Surgical history: Reports: appendectomy, cholecystectomy, hysterectomy Psychiatric history: Reports: no psych history - Social History Smoking Status: Never smoker Smokeless Tobacco Status: No Alcohol use: Reports: none Drug use: Reports: none Physical Exam - General Limitations: no limitations General appearance: alert, in no apparent distress - Head Head exam: atraumatic, normocephalic - Eye Eye exam: Present: normal appearance, PERRL, EOMI, nystagmus (Horizontal nystagmus with fast component to the left when looking to the right, no vertical nystagmus noted) - ENT ENT exam: normal exam - Neck Neck exam: Present: normal inspection, other (No audible carotid bruits). Absent: tenderness, meningismus - Chest Chest inspection: Present: normal inspection. Absent: tenderness - Respiratory Respiratory exam: Present: normal lung sounds bilaterally. Absent: wheezes - Cardiovascular Cardiovascular exam: Present: regular rate, normal rhythm - Abdominal Exam Abdominal exam: Present: soft, Non-Tender. Absent: distention, guarding, rebound, rigidity - Extremities Exam Extremities exam: Present: normal inspection. Absent: tenderness, pedal edema - Neurological Exam Neurological exam: Present: alert, oriented X3, other (Normal sensation to distal extremities bilaterally and face. Equal strength bilaterally for arms and legs.). Absent: motor sensory deficit - Psychiatric Psychiatric exam: Present: normal affect, normal mood - Skin Skin exam: Present: warm, dry, intact Course Vital Signs Temperature 99.0 F 09/10/18 09:17 Pulse Rate 75 09/10/18 09:17 Respiratory Rate 18 09/10/18 09:17 Blood Pressure 164/97 09/10/18 09:17 O2 Sat by Pulse Oximetry 97 09/10/18 09:17 Temperature 99.0 F 09/10/18 09:17 Pulse Rate 80 09/10/18 12:17 Respiratory Rate 16 09/10/18 12:17 Blood Pressure 150/70 09/10/18 12:17 O2 Sat by Pulse Oximetry 97 09/10/18 12:17 Oxygen Delivery Oxygen Delivery Room Air Dizziness - [facility] Narrative Medical decision making narrative: Patient has signs and symptoms suggestive of BPPV versus other causes of peripheral vertigo. She has had the symptoms for a week, we will obtain a CT scan of the head to rule out subacute stroke. We will also obtain basic lab work, EKG and troponin and treat the patient's dizziness with meclizine. If her symptoms do not completely resolve medication we will attempt Yulisa maneuver to see if this helps with her symptoms. 1200 - head CT is negative for any acute intracranial abnormality. Lab work and EKG are unremarkable. Patient is feeling mildly better, we will have her walk to make sure that she does not have recurrence of her symptoms have now we will discharge home on meclizine. Patient and family were updated on plan of care and they are agreeable. 1250 - Pt was unable to walk without reoccurence of dizziness and unsteadiness on her feet. Family does not feel safe having the patient go home as she lives alone. Patient will be admitted for further workup and treatment. 1400 - patient has been admitted to the hospitalist at this time. - Medical Records Medical records reviewed: Yes I reviewed the patient's medical records. - Lab Data Lab results reviewed: Yes I reviewed the patient's lab results. Result diagrams: 09/10/18 11:03 09/10/18 11:03 Lab Results 09/10/18 09/10/18 09/10/18 Range/Units 11:03 11:03 11:03 WBC 6.4 (4.3-11.1) K/mcL RBC 4.07 (3.82-4.97) M/mcL Hgb 11.5 (11.5-15.4) g/dL Hct 36.3 (35.3-44.9) % MCV 89.2 (83.0-100.0) fL MCH 28.3 (28.0-33.3) pg MCHC 31.7 (31.6-35.5) g/dL RDW 13.9 (11.5-14.5) % Plt Count 202 (140-400) K/mcL MPV 10.1 (9.4-12.4) fL Immature Gran % 0.2 (0-4) % Seg Neutrophils % 56.6 % Lymphocytes % 29.8 % Monocytes % 9.6 % Eosinophils % 3.5 % Basophils % 0.3 % Neutrophils # 3.6 (1.6-8.9) K/mcL Lymphocytes # 1.9 (0.6-4.6) K/mcL Monocytes # 0.6 (0.0-1.3) K/mcL Eosinophils # 0.2 (0.0-0.6) K/mcL Basophils # 0.0 (0.0-0.2) K/mcL PT 16.0 H (9.4-12.1) Seconds INR 1.4 APTT 26.8 (26.0-36.0) Seconds Sodium 138 (136-145) mEq/L Potassium 3.8 (3.5-5.1) mEq/L Chloride 107 (98-107) mEq/L Carbon Dioxide 25 (23-29) mEq/L BUN 16 (8-23) mg/dL Creatinine 0.63 (0.60-1.20) mg/dL Est GFR ( Amer) > 60 (> 60) Est GFR (Non-Af Amer) > 60 (> 60) BUN/Creatinine Ratio 25 (6-26) Glucose 94 (70-105) mg/dL Calculated Osmolality 287 (280-300) Calcium 9.5 (8.6-10.3) mg/dL Troponin I < 0.03 (< 0.04) ng/mL Urine Color (Yellow) Urine Clarity (Clear) Urine pH (5.0-8.0) pH Units Ur Specific [place] (1.010-1.025) Urine Protein (Neg-Trace) mg/dL Urine Glucose (UA) (Normal) mg/dL Urine Ketones (Negative) mg/dL Urine Blood (Negative) Urine Nitrite (Negative) Urine Bilirubin (Negative) Urine Urobilinogen (Normal) mg/dL Ur Leukocyte Esterase (Negative) Urine Microscopic RBC (0-3) per hpf Urine Microscopic WBC (0-3) per hpf Ur Squamous Epith Cells (None-Few) per lpf Urine Bacteria (None-Few) per hpf Hyaline Casts (None-Few) per lpf Ur Culture Indicated? (NO) 09/10/18 Range/Units 11:50 WBC (4.3-11.1) K/mcL RBC (3.82-4.97) M/mcL Hgb (11.5-15.4) g/dL Hct (35.3-44.9) % MCV (83.0-100.0) fL MCH (28.0-33.3) pg MCHC (31.6-35.5) g/dL RDW (11.5-14.5) % Plt Count (140-400) K/mcL MPV (9.4-12.4) fL Immature Gran % (0-4) % Seg Neutrophils % % Lymphocytes % % Monocytes % % Eosinophils % % Basophils % % Neutrophils # (1.6-8.9) K/mcL Lymphocytes # (0.6-4.6) K/mcL Monocytes # (0.0-1.3) K/mcL Eosinophils # (0.0-0.6) K/mcL Basophils # (0.0-0.2) K/mcL PT (9.4-12.1) Seconds INR APTT (26.0-36.0) Seconds Sodium (136-145) mEq/L Potassium (3.5-5.1) mEq/L Chloride (98-107) mEq/L Carbon Dioxide (23-29) mEq/L BUN (8-23) mg/dL Creatinine (0.60-1.20) mg/dL Est GFR ( Amer) (> 60) Est GFR (Non-Af Amer) (> 60) BUN/Creatinine Ratio (6-26) Glucose (70-105) mg/dL Calculated Osmolality (280-300) Calcium (8.6-10.3) mg/dL Troponin I (< 0.04) ng/mL Urine Color Yellow (Yellow) Urine Clarity Slightly Hazy (Clear) Urine pH 7.0 (5.0-8.0) pH Units Ur Specific [place] 1.008 L (1.010-1.025) Urine Protein Negative (Neg-Trace) mg/dL Urine Glucose (UA) Normal (Normal) mg/dL Urine Ketones Negative (Negative) mg/dL Urine Blood Negative (Negative) Urine Nitrite Positive A (Negative) Urine Bilirubin Negative (Negative) Urine Urobilinogen Normal (Normal) mg/dL Ur Leukocyte Esterase Large H (Negative) Urine Microscopic RBC 0-3 (0-3) per hpf Urine Microscopic WBC 50-100 H (0-3) per hpf Ur Squamous Epith Cells Moderate H (None-Few) per lpf Urine Bacteria Many H (None-Few) per hpf Hyaline Casts None Seen (None-Few) per lpf Ur Culture Indicated? YES A (NO) - Radiology Data Radiology results reviewed: Yes I reviewed the patient's radiology results. - EKG Data EKG attestation: Yes I reviewed and interpreted this EKG. EKG results narrative: EKG obtained at 9:28 on 09/10/2018 Heart rate 74 bpm, HI interval 172, QRS duration 93, QT 333, QTC 376 Sinus rhythm with left ventricular hypertrophy. No significant ST segment elevations or depressions. No other T-wave abnormalities. No significant changes when compared to previous EKG dated 06/10/2018. Attestation Statement - Attestation Attestation: I, Taras Hernandez DO, examined this patient [id number] and my medical decision-making was reviewed with Cassie Brock DO, Resident Physician. I agree with the documented findings, disposition and treatment plan as described except to the extent set forth below. I personally supervised and was present for the ocasio/critical portions of the procedures completed by the resident documented below. Please see my progress notes for details.
[2018-09-10] MEDS: 0.9 % Sodium Chloride 1,000 ML IVC SCH ×3 (10:27→22:03)
--- NOTE | 2018-09-10 10:42 | Emergency Department Note ---
Disposition Clinical Impression: Dizziness, Unsteady gait Disposition: Admitted As Inpatient Condition: Fair Time of Disposition: 15:01 General Adult HPI - General Chief complaint: ED Dizziness Stated complaint: dizziness Time Seen by Provider: 09/10/18 09:20 Source: patient, EMS Mode of arrival: EMS Limitations: no limitations - History of Present Illness Pain Scale: 0 - Related Data Home Medications Medication Instructions Recorded Confirmed Aspirin [Lo-Dose Aspirin EC] 81 mg PO DAILY 05/09/18 09/10/18 Donepezil [Aricept] 5 mg PO HS 05/09/18 06/10/18 Lisinopril [Zestril] 20 mg PO DAILY 05/09/18 06/10/18 Memantine HCl 10 mg PO BID 05/09/18 06/10/18 Metoprolol [Lopressor] 25 mg PO BID 05/09/18 06/10/18 Multivit-Min/FA/Lycopen/Lutein 1 tab PO DAILY 05/09/18 09/10/18 [Centrum Silver Tablet] Omeprazole [PriLOSEC] 20 mg PO DAILY 05/09/18 09/10/18 Trazodone HCl 100 mg PO HS 05/09/18 09/10/18 Nitrofurantoin [Macrodantin] 50 mg PO HS 06/05/18 06/10/18 Lovenox 40 mg SQ DAILY 06/09/18 06/10/18 Mag Hydrox/Al Hydrox/Simeth 30 ml PO Q4H PRN 06/09/18 06/10/18 [Maalox] MiraLAX 17 gm PO DAILY PRN 06/09/18 06/10/18 Tylenol 650 mg PO Q4H PRN 06/09/18 09/10/18 Previous Rx's Medication Instructions Recorded Azithromycin [Azithromycin 6-Tab 250 mg PO PER PKG DI #6 tab 06/09/18 Pack] Furosemide [Lasix] 20 mg PO DAILY PRN #30 tablet 06/09/18 Metoprolol XL (24 HR) Succ [Toprol 25 mg PO DAILY #60 tab.er.24h 06/09/18 Xl] Allergies Allergy/AdvReac Type Severity Reaction Status Date / Time ciprofloxacin [From Cipro] Allergy Hives Verified 06/10/18 06:03 Constitutional: Denies: fever, chills, weakness Eyes: Denies: vision change Cardiovascular: Denies: chest pain, palpitations, dyspnea on exertion Respiratory: Denies: cough, dyspnea, wheezes Gastrointestinal: Denies: abdominal pain, nausea, vomiting Genitourinary: Denies: dysuria, hematuria Musculoskeletal: Denies: back pain, neck pain Integumentary: Denies: rash Neurological: Reports: vertigo. Denies: headache, weakness, numbness, paresthesias Endocrine: Denies: fatigue Past Medical History - Past Medical History Medical history: Reports: arthritis, CHF, dementia, GERD, hyperlipidemia, hypertension, myocardial infarction, osteoporosis, other Surgical history: Reports: appendectomy, cholecystectomy, hysterectomy Psychiatric history: Reports: no psych history - Social History Smoking Status: Never smoker Smokeless Tobacco Status: No Alcohol use: Reports: none Drug use: Reports: none Physical Exam - General Limitations: no limitations General appearance: alert, in no apparent distress Course Vital Signs Temperature 99.0 F 09/10/18 09:17 Pulse Rate 75 09/10/18 09:17 Respiratory Rate 18 09/10/18 09:17 Blood Pressure 164/97 09/10/18 09:17 O2 Sat by Pulse Oximetry 97 09/10/18 09:17 Temperature 99.0 F 09/10/18 09:17 Pulse Rate 71 09/10/18 14:37 Respiratory Rate 18 09/10/18 14:37 Blood Pressure 141/71 09/10/18 14:37 O2 Sat by Pulse Oximetry 98 09/10/18 14:37 Oxygen Delivery Oxygen Delivery Room Air Medical Decision Making - Lab Data Result diagrams: 09/10/18 11:03 09/10/18 11:03 Lab Results 09/10/18 09/10/18 09/10/18 Range/Units 11:03 11:03 11:03 WBC 6.4 (4.3-11.1) K/mcL RBC 4.07 (3.82-4.97) M/mcL Hgb 11.5 (11.5-15.4) g/dL Hct 36.3 (35.3-44.9) % MCV 89.2 (83.0-100.0) fL MCH 28.3 (28.0-33.3) pg MCHC 31.7 (31.6-35.5) g/dL RDW 13.9 (11.5-14.5) % Plt Count 202 (140-400) K/mcL MPV 10.1 (9.4-12.4) fL Immature Gran % 0.2 (0-4) % Seg Neutrophils % 56.6 % Lymphocytes % 29.8 % Monocytes % 9.6 % Eosinophils % 3.5 % Basophils % 0.3 % Neutrophils # 3.6 (1.6-8.9) K/mcL Lymphocytes # 1.9 (0.6-4.6) K/mcL Monocytes # 0.6 (0.0-1.3) K/mcL Eosinophils # 0.2 (0.0-0.6) K/mcL Basophils # 0.0 (0.0-0.2) K/mcL PT 16.0 H (9.4-12.1) Seconds INR 1.4 APTT 26.8 (26.0-36.0) Seconds Sodium 138 (136-145) mEq/L Potassium 3.8 (3.5-5.1) mEq/L Chloride 107 (98-107) mEq/L Carbon Dioxide 25 (23-29) mEq/L BUN 16 (8-23) mg/dL Creatinine 0.63 (0.60-1.20) mg/dL Est GFR ( Amer) > 60 (> 60) Est GFR (Non-Af Amer) > 60 (> 60) BUN/Creatinine Ratio 25 (6-26) Glucose 94 (70-105) mg/dL Calculated Osmolality 287 (280-300) Calcium 9.5 (8.6-10.3) mg/dL Troponin I < 0.03 (< 0.04) ng/mL Urine Color (Yellow) Urine Clarity (Clear) Urine pH (5.0-8.0) pH Units Ur Specific [place] (1.010-1.025) Urine Protein (Neg-Trace) mg/dL Urine Glucose (UA) (Normal) mg/dL Urine Ketones (Negative) mg/dL Urine Blood (Negative) Urine Nitrite (Negative) Urine Bilirubin (Negative) Urine Urobilinogen (Normal) mg/dL Ur Leukocyte Esterase (Negative) Urine Microscopic RBC (0-3) per hpf Urine Microscopic WBC (0-3) per hpf Ur Squamous Epith Cells (None-Few) per lpf Urine Bacteria (None-Few) per hpf Hyaline Casts (None-Few) per lpf Ur Culture Indicated? (NO) 09/10/18 Range/Units 11:50 WBC (4.3-11.1) K/mcL RBC (3.82-4.97) M/mcL Hgb (11.5-15.4) g/dL Hct (35.3-44.9) % MCV (83.0-100.0) fL MCH (28.0-33.3) pg MCHC (31.6-35.5) g/dL RDW (11.5-14.5) % Plt Count (140-400) K/mcL MPV (9.4-12.4) fL Immature Gran % (0-4) % Seg Neutrophils % % Lymphocytes % % Monocytes % % Eosinophils % % Basophils % % Neutrophils # (1.6-8.9) K/mcL Lymphocytes # (0.6-4.6) K/mcL Monocytes # (0.0-1.3) K/mcL Eosinophils # (0.0-0.6) K/mcL Basophils # (0.0-0.2) K/mcL PT (9.4-12.1) Seconds INR APTT (26.0-36.0) Seconds Sodium (136-145) mEq/L Potassium (3.5-5.1) mEq/L Chloride (98-107) mEq/L Carbon Dioxide (23-29) mEq/L BUN (8-23) mg/dL Creatinine (0.60-1.20) mg/dL Est GFR ( Amer) (> 60) Est GFR (Non-Af Amer) (> 60) BUN/Creatinine Ratio (6-26) Glucose (70-105) mg/dL Calculated Osmolality (280-300) Calcium (8.6-10.3) mg/dL Troponin I (< 0.04) ng/mL Urine Color Yellow (Yellow) Urine Clarity Slightly Hazy (Clear) Urine pH 7.0 (5.0-8.0) pH Units Ur Specific [place] 1.008 L (1.010-1.025) Urine Protein Negative (Neg-Trace) mg/dL Urine Glucose (UA) Normal (Normal) mg/dL Urine Ketones Negative (Negative) mg/dL Urine Blood Negative (Negative) Urine Nitrite Positive A (Negative) Urine Bilirubin Negative (Negative) Urine Urobilinogen Normal (Normal) mg/dL Ur Leukocyte Esterase Large H (Negative) Urine Microscopic RBC 0-3 (0-3) per hpf Urine Microscopic WBC 50-100 H (0-3) per hpf Ur Squamous Epith Cells Moderate H (None-Few) per lpf Urine Bacteria Many H (None-Few) per hpf Hyaline Casts None Seen (None-Few) per lpf Ur Culture Indicated? YES A (NO) Attestation Statement - Attestation Attestation: I, Taras Hernandez DO, examined this patient [id number] and my medical decision-making was reviewed with Cassie Brock DO, Resident Physician. I agree with the documented findings, disposition and treatment plan as described except to the extent set forth below. I personally supervised and was present for the ocasio/critical portions of the procedures completed by the resident documented below. Please see my progress notes for details. 88-year-old female presents emergency room for evaluation of dizziness. Patient is have the dizziness for almost one week. Patient denies any headache or vision change. Denies any nausea vomiting or diarrhea. Denies any fevers or chills. She has not fallen or injured herself. Currently denying any history of stroke or blood related issues. She has not had any chest pain or shortness of breath. Vital signs are reviewed and are stable on presentation. Patient is alert she is oriented she speaking in full sentences. Pupils are equal round reactive. Extracted muscles are intact. Patient does have rightward lateralizing fatigable my statements that does screen symptoms noted here on exam. She has no stridor no trismus. She has full range of motion of the neck. Lungs are clear. Heart is regular. Abdomen is soft. No point tenderness guarding rigidity or peritoneal symptoms at this time. Extremities otherwise normal. She has full range of motion of the upper and lower extremities. She is able to walk from the EMS cot to the bed without any distress. Patient is concerning for possible peripheral symptoms here today but does have risk facto rs for possible CVA. Patient was CT imaging the head chest x-ray EKG CBC chemistry troponin and a lecture was collected here this time. Urinalysis will also be resulted. EKG is reviewed by myself in documented by the resident physician. See detailed documentation the physical exam, medical intervention, medical decision-making and disposition in the resident physician's note. No critical care by the patient's treatment course at this time. 1215 Patient has negative laboratory workup at this time. She got up to walk around and felt significantly dizzy. Because of this the patient will be admitted considering she lives at home by herself we do not have any acute source. CT imaging and labs are unremarkable. EKG did not show any acute abnormalities. Patient is stable we will discuss admission process with the family and with the hospitalist call back. 1335 Patient was discussed with the hospitalist Dr. Keane. Detailed review the presentation symptoms and inability for the patient to walk and safety concerns for her being home are discussed at length. Patient will be admitted this time for symptomatic control and monitoring. Patient is otherwise clinically stable. No other acute concerns or issues no this time. Patient will be monitored here in the emergency department until the admission process is completed.
[2018-09-10 11:25] LABS: Basophils % 0.3 %; Eosinophils # 0.2 K/mcL (0.0-0.6); Eosinophils % 3.5 %; Hematocrit 36.3 % (35.3-44.9); Hemoglobin 11.5 g/dL (11.5-15.4); Immature Granulocytes % 0.2 % (0-4); Lymphocytes # 1.9 K/mcL (0.6-4.6); Lymphocytes % 29.8 %; Mean Corpuscular HGB Conc 31.7 g/dL (31.6-35.5); Mean Corpuscular Hemoglobin 28.3 pg (28.0-33.3); Mean Corpuscular Volume 89.2 fL (83.0-100.0); Mean Platelet Volume 10.1 fL (9.4-12.4); Monocytes # 0.6 K/mcL (0.0-1.3); Monocytes % 9.6 %; Neutrophils # 3.6 K/mcL (1.6-8.9); Platelet Count 202 K/mcL (140-400); Red Blood Count 4.07 M/mcL (3.82-4.97); Red Cell Distribution Width 13.9 % (11.5-14.5); Segmented Neutrophils % 56.6 %; White Blood Count 6.4 K/mcL (4.3-11.1)
[2018-09-10 11:42] LABS: INR 1.4
[2018-09-10 11:45] LABS: Activated Partial Thrombo Time 26.8 Seconds (26.0-36.0); BUN/Creatinine Ratio 25 (6-26); Blood Urea Nitrogen 16 mg/dL (8-23); Calcium 9.5 mg/dL (8.6-10.3); Carbon Dioxide 25 mEq/L (23-29); Chloride 107 mEq/L (98-107); Glucose 94 mg/dL (70-105); Osmolality,Calculated 287 (280-300); Potassium 3.8 mEq/L (3.5-5.1); Sodium 138 mEq/L (136-145); Troponin I < 0.03 ng/mL (< 0.04); eGFR For African Americans > 60 (> 60); eGFR For Non-African Americans > 60 (> 60)
[2018-09-10 12:10] LABS: Bilirubin,Urine Negative (Negative); Blood,Urine Negative (Negative); Color,Urine Yellow (Yellow); Glucose,Urine (UA) Normal (Normal); Ketones,Urine Negative (Negative); Leukocyte Esterase,Urine Large (Negative); Nitrite,Urine Positive (Negative); Protein,Urine Negative (Neg-Trace); Specific Gravity,Urine 1.008 (1.010-1.025); Urobilinogen,Urine Normal (Normal)
[2018-09-10 12:11] LABS: Bacteria,Urine Many per hpf (None-Few); Hyaline Casts,Urine None Seen per lpf (None-Few); RBC,Urine 0-3 per hpf (0-3); Squamous Epithelial Cell,Urine Moderate per lpf (None-Few); WBC,Urine 50-100 per hpf (0-3)
[2018-09-10 12:14] LABS: Clarity,Urine Slightly Hazy (Clear)
[2018-09-10] MEDS ORDERED: cefTRIAXone 1,000 MG in Water for inj. (sterile) 20 ML 10 ML IVP ONE (14:04)
--- NOTE | 2018-09-10 14:38 | Internal Med History&Physical ---
Date of Encounter: 09/11/18 Internal Medicine - H&P: HPI Chief complaint: dizziness History of present illness: 88-year-old female with past medical history of CHF, [place], hypertension, hyperlipidemia presents to the emergency department with the complaint of dizziness for the past week. She states the dizziness usually happen when she stands or moves her head. She denies that room spinning around her and stated that her dizziness feel like lightheadedness. she denies loss of consciousness, palpitation,vision changes numbness, tingling and focal weakness, She denies nausea, vomiting ,diarrhea, changes of bowel habits. she denies hearing loss and a ringing sensation in the ears, visual disturbances, difficulty speaking, a decreased level of consciousness, and difficulty walking. The patients was evaluated by the ER staff and UA is evident for UTI. The ER staff concern is that the patient's symptoms might represent vertigo and patient was treated with meclizine, I discussed the case with neurology nurse practitioner Keith Bingham who requested MRI and stated they would only see the patient if MRI has positive findings on MRI. MRI was ordered and patient was admitted for further evaluation and management. Past Med Surg Social Fam HX - Past Medical History Medical history: arthritis, CHF, dementia, GERD, hyperlipidemia, hypertension, myocardial infarction, osteoporosis, other Additional medical history: Neuropathic bladder. Psychiatric history: no psych history - Past Surgical History Surgical History: appendectomy, cholecystectomy, hysterectomy Additional surgical history: heart cath, back surgery, bladder suspension - Social History Smoking Status: Never smoker Smokeless Tobacco Status: No Alcohol use: none Drug use: none - Family History Father Adopted: No Family Member Ethnicity: Non- Living Status: Hx Family Cardiac Disorders: Yes Hx Family Respiratory Disorders: No Hx Family Cancer: No Hx Family GI Disorders: No Hx Family Endocrine Disorder: No Hx Family Neuromuscular Disorders: No Hx Family Neurologic Disorders: No Hx Family HEENT Disorders: No Hx Family Autoimmune Disorders: No Mother Living Status: Internal Medicine - H&P: Meds Apixaban [Eliquis] 5 mg PO BID 09/10/18 [History] Aspirin [Lo-Dose Aspirin EC] 81 mg PO DAILY 09/10/18 [History] Carvedilol [Coreg] 6.25 mg PO BID 09/10/18 [History] Donepezil [Aricept] 5 mg PO DAILY 09/10/18 [History] Furosemide [Lasix] 20 mg PO DAILY 09/10/18 [History] Lisinopril [Zestril] 5 mg PO DAILY 09/10/18 [History] Memantine HCl 10 mg PO DAILY 09/10/18 [History] Multivitamin [One Daily Essential] 1 tab PO DAILY 09/10/18 [History] Nitrofurantoin [Macrodantin] 50 mg PO HS 09/10/18 [History] Omeprazole [PriLOSEC] 20 mg PO HS 09/10/18 [History] Potassium Chloride 10 meq PO DAILY 09/10/18 [History] Trazodone HCl 100 mg PO HS 09/10/18 [History] Allergy/AdvReac Type Severity Reaction Status Date / Time ciprofloxacin [From Cipro] Allergy Hives Verified 09/10/18 20:41 All Systems PM: A 10-system review of systems was performed and is negative for pertinent findings except as documented above in the HPI. - Constitutional Vitals: Temp Pulse Resp BP Pulse Ox 99.0 F 71 18 141/71 98 09/10/18 09:17 09/10/18 14:37 09/10/18 14:37 09/10/18 14:37 09/10/18 14:37 General appearance: Present: A&O X 3 - Head Head exam: Present: atraumatic, normocephalic - Neck Neck exam general surgery: Present: supple, trachea midline. Absent: lymphadenopathy - Respiratory Respiratory exam: Present: CTAB. Absent: accessory muscle use, rales, rhonchi, wheezes - Cardiovascular Cardiovascular exam: Present: RRR, +S1, +S2. Absent: diastolic murmur, gallop, rubs, systolic murmur - GI/Abdominal GI/Abdominal exam: Present: normal bowel sounds, soft, no peritoneal signs. Absent: distended, tenderness - Extremities Exam Extremities exam: Present: warm, radial pulses palpable and symmetrical. Absent: calf tenderness, cyanotic, pedal edema - Neurological Exam Neurological exam: Present: CN II-XII intact, oriented X3, no focal deficits. Absent: pronater drift, facial droop, speech deficit Internal Med - H&P Results - Labs CBC & Chem 7: 09/10/18 11:03 09/10/18 11:03 Labs: Short CBC 09/10/18 Range/Units 11:03 WBC 6.4 (4.3-11.1) K/mcL Hgb 11.5 (11.5-15.4) g/dL Hct 36.3 (35.3-44.9) % Plt Count 202 (140-400) K/mcL Neutrophils # 3.6 (1.6-8.9) K/mcL BMP 09/10/18 11:03 Sodium 138 Potassium 3.8 Chloride 107 Carbon Dioxide 25 BUN 16 Creatinine 0.63 Glucose 94 Calcium 9.5 Cardiac Enzymes 09/10/18 Range/Units 11:03 Troponin I < 0.03 (< 0.04) ng/mL Urine 09/10/18 Range/Units 11:50 Urine Color Yellow (Yellow) Urine Clarity Slightly Hazy (Clear) Urine pH 7.0 (5.0-8.0) pH Units Ur Specific [place] 1.008 L (1.010-1.025) Urine Protein Negative (Neg-Trace) mg/dL Urine Glucose (UA) Normal (Normal) mg/dL - Impressions ITS Impressions Head CT 09/10/18 09:21 IMPRESSION: No acute intracranial abnormality. D/ / 09/10/2018 11:01:17 Sabrina Perkins MD / jay Interpreting Provider: Sabrina Perkins MD - Assessment and Plan (1) Dizziness Current Visit: Yes Status: Acute Assessment and plan: -Dizziness DD *Hypovolemia *Arrhythmia *TIA *Labyrinthitis *CVA PLAN: - CT scan of the head with no significant abnormalities. - I discussed the case with neurology nurse practitioner Keith Bingham who requested MRI and stated they would only see the patient if MRI has positive findings on MRI. - EKG now and in AM, telemetry. (2) UTI (urinary tract infection) Current Visit: No Status: Acute Assessment and plan: The patient is on Antibiotic treatment for intermittent bladder catheterisation with once daily prophylaxis. we will start the patient on empiric antibiotic with ceftriaxone and follow-up on culture results and adjust regimen as indicated Qualifiers: Urinary tract infection type: acute cystitis Hematuria presence: without hematuria Qualified Code(s): N30.00 - Acute cystitis without hematuria (3) Hypertension Current Visit: No Status: Chronic Assessment and plan: we'll continue home medication with holding Rosa, we'll obtain orthostatic, rule out orthostatic hypotension as possible etiology of the patient's symptoms Qualifiers: Hypertension type: unspecified Qualified Code(s): I10 - Essential (primary) hypertension (4) HLD (hyperlipidemia) Current Visit: No Status: Acute Qualifiers: Hyperlipidemia type: unspecified Qualified Code(s): E78.5 - Hyperlipidemia, unspecified (5) DVT prophylaxis Current Visit: No Status: Acute (6) Dementia Current Visit: No Status: Chronic Qualifiers: Dementia type: unspecified type Dementia behavioral disturbance: without behavioral disturbance Qualified Code(s): F03.90 - Unspecified dementia without behavioral disturbance (7) CAD (coronary artery disease) Current Visit: No Status: Chronic Qualifiers: Coronary Disease-Associated Artery/Lesion type: unspecified vessel or lesion type [place] vs. transplanted heart: [place] heart Associated angina: with unspecified angina Qualified Code(s): I25.119 - Atherosclerotic heart disease of [place] coronary artery with unspecified angina pectoris (8) DVT prophylaxis Current Visit: Yes Status: Acute (9) History of pulmonary embolus (PE) Current Visit: Yes Status: Acute Assessment and plan: Patient has history of large bilateral pulmonary embolus that is near saddle- like. we will continue chronic anticoagulation with - Time Spent With Patient Total time spent is greater than 50% in coordination of care (as documented) at patient's floor/unit and/or counseling patient:
--- NOTE | 2018-09-10 16:22 | Electrocardiograph Report ---
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
[2018-09-10] MEDS ORDERED: Ondansetron 4 MG/2 ML VIAL IVP PRN (18:30)
[2018-09-10] MEDS ORDERED: *HR* HYDROcodone/Acet 5/325 mg TABLET PO PRN (18:30)
[2018-09-10] MEDS ORDERED: Naloxone 0.4 MG/ML INJ IVP PRN (18:30)
[2018-09-10] MEDS ORDERED: Furosemide 20 MG TABLET PO PRN (19:40)
[2018-09-10] MEDS ORDERED: TYLENOL 650 MG PO PRN (19:40)
[2018-09-10] MEDS ORDERED: *HR* Dextrose 50 % in Water (Syg) 50 ML SYRINGE IVP PRN (19:42)
[2018-09-10] MEDS ORDERED: D5% in Water 1,000 ML IVC PRN (19:42)
[2018-09-10] MEDS ORDERED: Dextrose Gel 15 GM/37.5 ML TUBE PO PRN ×2 (19:42)
[2018-09-10] MEDS: Insulin LISPRO 300 UNITS/3 ML VIAL SQ SCH (20:47)
[2018-09-10] MEDS: traZODone 50 MG TABLET PO SCH (22:03)
[2018-09-11 06:38] LABS: Basophils % 0.2 %; Eosinophils # 0.3 K/mcL (0.0-0.6); Eosinophils % 5.5 %; Hematocrit 31.2 % (35.3-44.9); Hemoglobin 9.8 g/dL (11.5-15.4); Immature Granulocytes % 0.2 % (0-4); Lymphocytes # 1.9 K/mcL (0.6-4.6); Lymphocytes % 32.9 %; Mean Corpuscular HGB Conc 31.4 g/dL (31.6-35.5); Mean Corpuscular Hemoglobin 27.8 pg (28.0-33.3); Mean Corpuscular Volume 88.6 fL (83.0-100.0); Monocytes # 0.6 K/mcL (0.0-1.3); Monocytes % 11.2 %; Neutrophils # 2.8 K/mcL (1.6-8.9); Platelet Count 173 K/mcL (140-400); Red Blood Count 3.52 M/mcL (3.82-4.97); White Blood Count 5.6 K/mcL (4.3-11.1)
[2018-09-11 06:47] LABS: INR 1.3; Prothrombin Time 14.2 Seconds (9.4-12.1)
[2018-09-11 06:48] LABS: Activated Partial Thrombo Time 22.1 Seconds (26.0-36.0)
[2018-09-11 06:56] LABS: Alanine Aminotransferase 9 Units/L (7-52); Albumin 2.7 g/dL (3.5-5.7); Albumin/Globulin Ratio 1.4 (1.1-2.2); Alkaline Phosphatase 51 Units/L (34-104); Aspartate Amino Transferase 14 Units/L (13-39); BUN/Creatinine Ratio 24 (6-26); Bilirubin,Total 0.4 mg/dL (0.3-1.0); Blood Urea Nitrogen 15 mg/dL (8-23); Calcium 8.7 mg/dL (8.6-10.3); Carbon Dioxide 24 mEq/L (23-29); Chloride 111 mEq/L (98-107); Chol/HDL Ratio 2.9 (0-4.9); Cholesterol 102 mg/dL (< 200); Glucose 86 mg/dL (70-105); HDL Cholesterol 35 mg/dL (40-59); LDL Cholesterol,Calculated 50 mg/dL (0-99); Magnesium 1.4 mg/dL (1.6-2.6); Osmolality,Calculated 292 (280-300); Phosphorous 3.2 mg/dL (2.7-4.5); Potassium 3.6 mEq/L (3.5-5.1); Sodium 141 mEq/L (136-145); Total Protein 4.7 g/dL (6.4-8.9); Triglycerides 83 mg/dL (< 150); eGFR For African Americans > 60 (> 60); eGFR For Non-African Americans > 60 (> 60)
[2018-09-11 08:26] LABS: Estimated Average Glucose 114 mg/dl; Hemoglobin A1C 5.6 %
[2018-09-11] MEDS: Aspirin Enteric Coated 81 MG Tablet PO SCH (10:02)
[2018-09-11] MEDS: cefTRIAXone 1,000 MG in Water for inj. (sterile) 20 ML 10 ML IVP SCH (10:02)
[2018-09-11] MEDS: Multivit/Ca/Min/Fe/FA 1 TAB TABLET PO SCH (10:02)
[2018-09-11] MEDS: Insulin LISPRO 300 UNITS/3 ML VIAL SQ SCH ×4 (10:04→21:24)
[2018-09-11] MEDS: 0.9 % Sodium Chloride 1,000 ML IVC SCH ×4 (10:04→19:21)
[2018-09-11] MEDS: Acetaminophen 325 MG TABLET PO PRN (14:34)
--- NOTE | 2018-09-11 14:36 | Internal Med Progress Note ---
Hospitalist Progress Note - Encounter Date of Encounter: 09/11/18 Time of Encounter: 14:00 - Subjective Interval History: Ms. Peña is a 88-year-old female with past medical history of systolic CHF, CT, hypertension, hyperlipidemia, and recurrent UTI who does how chronic urinary retention problem does self catheterization at home, presented to the emergency department with the complaint of dizziness and lethargic for the past week. She states the dizziness usually happen when she stands or moves her head. She denies that room spinning around her and stated that her dizziness feel like lightheadedness. In the ER her UA was evident for UTI. She was admitted in the hospital and placed her on auto body estimator. She was started on IV hydration and empirical abx IV [place]. She still looks very weak and lethargic. She looks dehydrated. - Exam Vitals: Temp Pulse Resp BP Pulse Ox 98.2 F 80 20 135/68 99 09/11/18 11:22 09/11/18 11:22 09/11/18 11:22 09/11/18 11:22 09/11/18 11:22 Exam: Gen: Alert, awake, Oriented to time,place and person..Weak and lethargic Chest: Diminished breath sounds B/L, No wheezing, No crackles, No rales Heart: S1S2+ RRR No murmurs Abd: Soft, NT, BS +, No organomegaly Ext: No edema, pulses are palpable, No calf tenderness Neuro : No acute focal neuro deficits noticed Skin: No rash. Dry - Assessment and Plan (1) Dizziness Current Visit: Yes Status: Acute Assessment and Plan: Concenring for Vertigo Her dizziness could be due to UTI / Dehydration too cont IVF Need to r/o CVA / posterior circulation stroke CT of Head - negative MRI of Head - P Cont ASA Reviewed FLP - LDL @ 50 Patient does need to stay in the hospital more than 2 midnights due to his complex medical problems. So we will change him to full admission today. I did review my colleague Dr. Keane's H & P including HPI, PMH, PSH, FH, SH, and ROS no changes noticed (2) UTI (urinary tract infection) Current Visit: No Status: Acute Assessment and Plan: UA is abnormal Cont empirical abx Rocephin Will f/u on Urine cx (3) Hypertension Current Visit: No Status: Chronic Assessment and Plan: Resumed all home medications (4) Dementia Current Visit: No Status: Chronic (5) HLD (hyperlipidemia) Current Visit: No Status: Acute (6) CAD (coronary artery disease) Current Visit: No Status: Chronic (7) History of pulmonary embolus (PE) Current Visit: Yes Status: Acute Assessment and Plan: Patient has history of large bilateral pulmonary embolus that is near saddle- like continue chronic anticoagulation with Eliquis (8) DVT prophylaxis Current Visit: No Status: Acute Assessment and Plan: on Eliquis - Time Spent with Patient Total time spent is greater than 50% in coordination of care (as documented) at patient's floor/unit and/or counseling patient: Internal Medicine: Result - Labs CBC & Chem 7: 09/11/18 05:53 09/11/18 05:53 Labs: Short CBC 09/11/18 Range/Units 05:53 WBC 5.6 (4.3-11.1) K/mcL Hgb 9.8 L D (11.5-15.4) g/dL Hct 31.2 L (35.3-44.9) % Plt Count 173 (140-400) K/mcL Neutrophils # 2.8 (1.6-8.9) K/mcL BMP 09/11/18 05:53 Sodium 141 Potassium 3.6 Chloride 111 H Carbon Dioxide 24 BUN 15 Creatinine 0.63 Glucose 86 Calcium 8.7 Liver Function 09/11/18 Range/Units 05:53 Total Bilirubin 0.4 (0.3-1.0) mg/dL AST 14 (13-39) Units/L ALT 9 (7-52) Units/L Alkaline Phosphatase 51 (34-104) Units/L Albumin 2.7 L (3.5-5.7) g/dL - ABG Interpretation ABG results: PT/INR, D-dimer PT 14.2 Seconds (9.4-12.1) H 09/11/18 05:53 - Impressions Impressions Head CT 09/10/18 09:21 IMPRESSION: No acute intracranial abnormality. D/ / 09/10/2018 11:01:17 Sabrina Perkins MD / jay Interpreting Provider: Sabrina Perkins MD Consult Discharge Plan - Plan Referrals: Shakeel Cazares DO [Primary Care Provider] - (2) UTI (urinary tract infection) Qualifiers: Urinary tract infection type: acute cystitis Hematuria presence: without hematuria Qualified Code(s): N30.00 - Acute cystitis without hematuria (3) Hypertension Qualifiers: Hypertension type: essential hypertension Qualified Code(s): I10 - Essential (primary) hypertension (4) Dementia Qualifiers: Dementia type: unspecified type Dementia behavioral disturbance: without behavioral disturbance Qualified Code(s): F03.90 - Unspecified dementia without behavioral disturbance (5) HLD (hyperlipidemia) Qualifiers: Hyperlipidemia type: unspecified Qualified Code(s): E78.5 - Hyperlipidemia, unspecified (6) CAD (coronary artery disease) Qualifiers: Coronary Disease-Associated Artery/Lesion type: unspecified vessel or lesion type [place] vs. transplanted heart: [place] heart Associated angina: with unspecified angina Qualified Code(s): I25.119 - Atherosclerotic heart disease of [place] coronary artery with unspecified angina pectoris
[2018-09-11] MEDS: traZODone 50 MG TABLET PO SCH (21:24)
[2018-09-12] MEDS: 0.9 % Sodium Chloride 1,000 ML IVC SCH (03:05)
[2018-09-12] MEDS: Multivit/Ca/Min/Fe/FA 1 TAB TABLET PO SCH (08:51)
[2018-09-12] MEDS: Aspirin Enteric Coated 81 MG Tablet PO SCH (08:52)
[2018-09-12] MEDS: cefTRIAXone 1,000 MG in Water for inj. (sterile) 20 ML 10 ML IVP SCH (08:52)
[2018-09-12] MEDS: Insulin LISPRO 300 UNITS/3 ML VIAL SQ SCH (09:00)
[2018-09-12] MEDS: Apixaban 5 MG TABLET PO SCH ×2 (11:05→21:05)
--- NOTE | 2018-09-12 12:23 | Internal Med Progress Note ---
Hospitalist Progress Note - Encounter Date of Encounter: 09/12/18 Time of Encounter: 11:15 - Subjective Interval History: No new complaints. Dizziness is relatively unchanged but worse with right position; orthostatics however was negative. No chest pain, shortness of breath, or lightheadedness. - Exam Vitals: Temp Pulse Resp BP Pulse Ox 98.2 F 80 16 115/61 95 09/12/18 12:05 09/12/18 12:05 09/12/18 12:05 09/12/18 12:05 09/12/18 12:05 Exam: Gen: Alert, awake, Oriented x 3. Pleasant elderly female Chest: Clear to auscultation bilaterally Heart: S1S2+ RRR No murmurs Abd: Soft, NT, BS + : No CVA tenderness Ext: No edema, pulses are palpable, No calf tenderness Neuro : No acute focal neuro deficits noticed - Assessment and Plan (1) Dizziness Current Visit: Yes Status: Acute Assessment and Plan: appears to be peripheral, orthostatics -ve, MRI -ve symptomatic tx with meclizine (2) UTI (urinary tract infection) Current Visit: Yes Status: Acute Assessment and Plan: urine culture grew K. pneumoniae switch abx to Augmentin (3) HFrEF (heart failure with reduced ejection fraction) Current Visit: Yes Status: Chronic Assessment and Plan: continue bb if BP is stable through today, will resume LISANDRO-i tomorrow (4) History of pulmonary embolus (PE) Current Visit: Yes Status: Acute Assessment and Plan: resume Eliquis (5) Dementia Current Visit: No Status: Chronic Assessment and Plan: Continue home meds (6) CAD (coronary artery disease) Current Visit: No Status: Chronic Assessment and Plan: continue ASA, bb (7) DVT prophylaxis Current Visit: No Status: Acute Assessment and Plan: Eliquis - Time Spent with Patient Total time spent is greater than 50% in coordination of care (as documented) at patient's floor/unit and/or counseling patient: 25 - 35 minutes Plan of Care Discussed with: patient (discussed with pt's family) Internal Medicine: Result - Labs CBC & Chem 7: 09/11/18 05:53 09/11/18 05:53 - ABG Interpretation ABG results: PT/INR, D-dimer PT 14.2 Seconds (9.4-12.1) H 09/11/18 05:53 - Impressions Impressions Brain MRI 09/10/18 18:45 IMPRESSION: 1. No acute intracranial abnormality. 2. Mild chronic white matter microvascular ischemic changes. 3. Trace right mastoid effusion. D/ / Evan England / Evan England Interpreting Provider: Evan England Consult Discharge Plan - Plan Referrals: Shakeel Cazares DO [Primary Care Provider] - (2) UTI (urinary tract infection) Qualifiers: Urinary tract infection type: acute cystitis Hematuria presence: without hematuria Qualified Code(s): N30.00 - Acute cystitis without hematuria (3) HFrEF (heart failure with reduced ejection fraction) Qualifiers: Heart failure chronicity: chronic Qualified Code(s): I50.22 - Chronic systolic (congestive) heart failure (5) Dementia Qualifiers: Dementia type: unspecified type Dementia behavioral disturbance: without behavioral disturbance Qualified Code(s): F03.90 - Unspecified dementia without behavioral disturbance (6) CAD (coronary artery disease) Qualifiers: Coronary Disease-Associated Artery/Lesion type: unspecified vessel or lesion type [place] vs. transplanted heart: [place] heart Associated angina: with unspecified angina Qualified Code(s): I25.119 - Atherosclerotic heart disease of [place] coronary artery with unspecified angina pectoris
[2018-09-12] MEDS: Acetaminophen 325 MG TABLET PO PRN (21:05)
[2018-09-12] MEDS: traZODone 50 MG TABLET PO SCH (21:05)
[2018-09-13 06:25] LABS: Basophils % 0.4 %; Eosinophils # 0.5 K/mcL (0.0-0.6); Eosinophils % 8.7 %; Hemoglobin 9.7 g/dL (11.5-15.4); Immature Granulocytes % 0.2 % (0-4); Lymphocytes % 36.2 %; Mean Corpuscular HGB Conc 31.3 g/dL (31.6-35.5); Mean Corpuscular Hemoglobin 27.7 pg (28.0-33.3); Mean Corpuscular Volume 88.6 fL (83.0-100.0); Mean Platelet Volume 9.6 fL (9.4-12.4); Monocytes # 0.7 K/mcL (0.0-1.3); Monocytes % 11.8 %; Neutrophils # 2.4 K/mcL (1.6-8.9); Platelet Count 172 K/mcL (140-400); Red Cell Distribution Width 14.1 % (11.5-14.5); Segmented Neutrophils % 42.7 %; White Blood Count 5.5 K/mcL (4.3-11.1)
[2018-09-13 06:43] LABS: BUN/Creatinine Ratio 20 (6-26); Blood Urea Nitrogen 11 mg/dL (8-23); Carbon Dioxide 26 mEq/L (23-29); Chloride 109 mEq/L (98-107); Glucose 89 mg/dL (70-105); Magnesium 1.8 mg/dL (1.6-2.6); Osmolality,Calculated 289 (280-300); Potassium 3.7 mEq/L (3.5-5.1); Sodium 140 mEq/L (136-145); eGFR For African Americans > 60 (> 60); eGFR For Non-African Americans > 60 (> 60)
[2018-09-13] MEDS: Apixaban 5 MG TABLET PO SCH ×2 (08:46→20:49)
[2018-09-13] MEDS: Aspirin Enteric Coated 81 MG Tablet PO SCH (08:47)
[2018-09-13] MEDS: Multivit/Ca/Min/Fe/FA 1 TAB TABLET PO SCH (08:47)
--- NOTE | 2018-09-13 12:18 | Internal Med Progress Note ---
Hospitalist Progress Note - Encounter Date of Encounter: 09/13/18 Time of Encounter: 11:00 - Subjective Interval History: No acute events overnight. Continues to experience dizziness intermittently but better controlled - Exam Vitals: Temp Pulse Resp BP Pulse Ox 98.2 F 83 16 133/70 95 09/13/18 11:08 09/13/18 11:08 09/13/18 11:08 09/13/18 11:08 09/13/18 11:08 Exam: Gen: Alert, awake, Oriented x 3. Pleasant elderly female Chest: Clear to auscultation bilaterally Heart: S1S2+ RRR No murmurs Abd: Soft, NT, BS + : No CVA tenderness Ext: No edema, pulses are palpable, No calf tenderness Neuro : No acute focal neuro deficits noticed - Assessment and Plan (1) Dizziness Current Visit: Yes Status: Acute Assessment and Plan: appears to be peripheral, orthostatics -ve, MRI -ve symptomatic tx with meclizine PT/OT recommended for SNF, will work with SW tomorrow (2) UTI (urinary tract infection) Current Visit: Yes Status: Acute Assessment and Plan: urine culture grew K. pneumoniae abx swithced to Augmentin on 09/12 (total of D4 on abx today). Aim for 7 day course (3) CAD (coronary artery disease) Current Visit: No Status: Chronic Assessment and Plan: continue ASA, bb (4) HFrEF (heart failure with reduced ejection fraction) Current Visit: Yes Status: Chronic Assessment and Plan: continue bb, will resume LISANDRO-i today holding lasix as it was thought that she was initially dehydrated and received IVF. May need to be resumed at PRN dose (5) History of pulmonary embolus (PE) Current Visit: Yes Status: Chronic Assessment and Plan: resume Eliquis (6) Dementia Current Visit: No Status: Chronic Assessment and Plan: Continue home meds (7) DVT prophylaxis Current Visit: No Status: Acute Assessment and Plan: Eliquis - Time Spent with Patient Total time spent is greater than 50% in coordination of care (as documented) at patient's floor/unit and/or counseling patient: less than 15 minutes Plan of Care Discussed with: patient Internal Medicine: Result - Labs CBC & Chem 7: 09/13/18 05:55 09/13/18 05:55 Labs: Short CBC 09/13/18 Range/Units 05:55 WBC 5.5 (4.3-11.1) K/mcL Hgb 9.7 L (11.5-15.4) g/dL Hct 31.0 L (35.3-44.9) % Plt Count 172 (140-400) K/mcL Neutrophils # 2.4 (1.6-8.9) K/mcL BMP 09/13/18 05:55 Sodium 140 Potassium 3.7 Chloride 109 H Carbon Dioxide 26 BUN 11 Creatinine 0.55 L Glucose 89 Calcium 9.0 - ABG Interpretation ABG results: PT/INR, D-dimer PT 14.2 Seconds (9.4-12.1) H 09/11/18 05:53 Consult Discharge Plan - Plan Referrals: Shakeel Cazares DO [Primary Care Provider] - (2) UTI (urinary tract infection) Qualifiers: Urinary tract infection type: acute cystitis Hematuria presence: without hematuria Qualified Code(s): N30.00 - Acute cystitis without hematuria (3) CAD (coronary artery disease) Qualifiers: Coronary Disease-Associated Artery/Lesion type: unspecified vessel or lesion type [place] vs. transplanted heart: [place] heart Associated angina: with unspecified angina Qualified Code(s): I25.119 - Atherosclerotic heart disease of [place] coronary artery with unspecified angina pectoris (4) HFrEF (heart failure with reduced ejection fraction) Qualifiers: Heart failure chronicity: chronic Qualified Code(s): I50.22 - Chronic systolic (congestive) heart failure (6) Dementia Qualifiers: Dementia type: unspecified type Dementia behavioral disturbance: without behavioral disturbance Qualified Code(s): F03.90 - Unspecified dementia without behavioral disturbance
[2018-09-13] MEDS: traZODone 50 MG TABLET PO SCH (20:49)
[2018-09-13] MEDS: Acetaminophen 325 MG TABLET PO PRN (20:57)
[2018-09-14 04:24] LABS: Basophils % 0.2 %; Eosinophils # 0.3 K/mcL (0.0-0.6); Eosinophils % 5.1 %; Hematocrit 31.7 % (35.3-44.9); Immature Granulocytes % 0.2 % (0-4); Lymphocytes # 2.3 K/mcL (0.6-4.6); Lymphocytes % 36.3 %; Mean Corpuscular HGB Conc 31.5 g/dL (31.6-35.5); Mean Corpuscular Hemoglobin 27.6 pg (28.0-33.3); Mean Corpuscular Volume 87.6 fL (83.0-100.0); Mean Platelet Volume 9.6 fL (9.4-12.4); Monocytes # 0.8 K/mcL (0.0-1.3); Monocytes % 12.1 %; Platelet Count 170 K/mcL (140-400); Red Blood Count 3.62 M/mcL (3.82-4.97); Red Cell Distribution Width 14.1 % (11.5-14.5); Segmented Neutrophils % 46.1 %; White Blood Count 6.4 K/mcL (4.3-11.1)
[2018-09-14 04:40] LABS: BUN/Creatinine Ratio 25 (6-26); Blood Urea Nitrogen 14 mg/dL (8-23); Calcium 9.3 mg/dL (8.6-10.3); Carbon Dioxide 25 mEq/L (23-29); Chloride 106 mEq/L (98-107); Glucose 103 mg/dL (70-105); Osmolality,Calculated 287 (280-300); Potassium 3.6 mEq/L (3.5-5.1); Sodium 138 mEq/L (136-145); eGFR For African Americans > 60 (> 60); eGFR For Non-African Americans > 60 (> 60)
[2018-09-14] MEDS: Apixaban 5 MG TABLET PO SCH (09:23)
[2018-09-14] MEDS: Multivit/Ca/Min/Fe/FA 1 TAB TABLET PO SCH (09:23)
[2018-09-14] MEDS: Aspirin Enteric Coated 81 MG Tablet PO SCH (09:23)
[2018-09-14] MEDS: cephALEXin 500 MG CAPSULE PO SCH ×2 (11:09→16:53)
[2018-09-14 11:31] VITALS: BP 136/67
--- NOTE | 2018-09-14 13:58 | Discharge Summary ---
- NOTES TO OUTPATIENT PROVIDER Notes to Outpatient Provider: f/u with PCP in one week. Finish 2 more days of PO Abx Keflex for your UTI Orders not resulted at time of discharge: Pending orders 09/14/18 09:13 C.difficile Toxin PCR (>=2yo) [[facility]OLMIC] Routine Date of Encounter: 09/14/18 Time of Encounter: 13:55 - Discharge Diagnosis (1) UTI (urinary tract infection) Priority: Primary Status: Acute Qualifiers: Urinary tract infection type: acute cystitis Hematuria presence: without hematuria Qualified Code(s): N30.00 - Acute cystitis without hematuria (2) Dizziness Priority: Primary Status: Acute (3) Dementia Priority: Secondary Status: Chronic Qualifiers: Dementia type: unspecified type Dementia behavioral disturbance: without behavioral disturbance Qualified Code(s): F03.90 - Unspecified dementia without behavioral disturbance (4) CAD (coronary artery disease) Priority: Secondary Status: Chronic Qualifiers: Coronary Disease-Associated Artery/Lesion type: [place] artery [place] vs. transplanted heart: [place] heart Associated angina: with unspecified angina Qualified Code(s): I25.119 - Atherosclerotic heart disease of [place] coronary artery with unspecified angina pectoris (5) History of pulmonary embolus (PE) Priority: Secondary Status: Chronic (6) HFrEF (heart failure with reduced ejection fraction) Priority: Secondary Status: Chronic Qualifiers: Heart failure chronicity: chronic Qualified Code(s): I50.22 - Chronic systolic (congestive) heart failure (7) DVT prophylaxis Priority: Secondary Status: Acute Hospital course: Ms. Peña is a 88-year-old female with past medical history of systolic CHF, ID, hypertension, hyperlipidemia, and recurrent UTI who does how chronic urinary retention problem does self catheterization at home, presented to the emergency department with the complaint of dizziness and lethargic for the past week. She states the dizziness usually happen when she stands or moves her head. She denies that room spinning around her and stated that her dizziness feel like lightheadedness. In the ER her UA was evident for UTI. She was admitted in the hospital and placed her on monitoring and evaluation advisor. She was started on IV hydration and empirical abx IV Rocpehin. Her urine cx grew Klebsiella. Switched to PO Abx Augmentin y/d, later she developed diarrhea, so changed to PO Keflex now. She does not have any more diarrhea. Her dizziness seems to be due to dehydration and possible peripheral vertigo. Her Brain MRI came back as negative for Ischemia / Infarction. Her symptoms improved with Meclizine. Pt was evaluated by PT / OT who recommend ECF placement for short term rehab. So will d/c her to ECF in stable condition today. - Time Spent with Patient Total time spent providing and/or coordinating discharge services: - Discharge Medications Prescriptions: New Meclizine [Antivert] 12.5 mg PO TID PRN #15 tablet PRN Reason: Vertigo cephALEXin [Keflex] 500 mg PO TID 2 Days #6 capsule Continued Apixaban [Eliquis] 5 mg PO BID Aspirin [Lo-Dose Aspirin EC] 81 mg PO DAILY Carvedilol [Coreg] 6.25 mg PO BID Donepezil [Aricept] 5 mg PO DAILY Furosemide [Lasix] 20 mg PO DAILY Lisinopril [Zestril] 5 mg PO DAILY Memantine HCl 10 mg PO DAILY Multivitamin [One Daily Essential] 1 tab PO DAILY Nitrofurantoin [Macrodantin] 50 mg PO HS Omeprazole [PriLOSEC] 20 mg PO HS Potassium Chloride 10 meq PO DAILY Trazodone HCl 100 mg PO HS Home Medications: Apixaban [Eliquis] 5 mg PO BID 09/10/18 [History] Aspirin [Lo-Dose Aspirin EC] 81 mg PO DAILY 09/10/18 [History] Carvedilol [Coreg] 6.25 mg PO BID 09/10/18 [History] Donepezil [Aricept] 5 mg PO DAILY 09/10/18 [History] Furosemide [Lasix] 20 mg PO DAILY 09/10/18 [History] Lisinopril [Zestril] 5 mg PO DAILY 09/10/18 [History] Memantine HCl 10 mg PO DAILY 09/10/18 [History] Multivitamin [One Daily Essential] 1 tab PO DAILY 09/10/18 [History] Nitrofurantoin [Macrodantin] 50 mg PO HS 09/10/18 [History] Omeprazole [PriLOSEC] 20 mg PO HS 09/10/18 [History] Potassium Chloride 10 meq PO DAILY 09/10/18 [History] Trazodone HCl 100 mg PO HS 09/10/18 [History] Meclizine [Antivert] 12.5 mg PO TID PRN #15 tablet 09/14/18 [Rx] cephALEXin [Keflex] 500 mg PO TID 2 Days #6 capsule 09/14/18 [Rx] Allergies/Adverse Reactions: Allergy/AdvReac Type Severity Reaction Status Date / Time ciprofloxacin [From Cipro] Allergy Hives Verified 09/10/18 20:41 Date of admission: 09/11/18 12:40 Primary care physician: Shakeel Cazares Consults: 09/11/18 12:40 Consult to Physical Therapy [CONS] Routine Comment: Evaluate, develop and implement POC Reason for Consult: Physical deconditioning Does patient have active BEDREST order?: No Is patient medically & hemodynamically stable?: Yes Patient assessed for mobility or mobilized this visit?: Yes OT [Consult to Occupational Therapy] [CONS] Routine Comment: Evaluate, develop and implement POC Reason for Consult: Physicla deconditioning Does patient have active BEDREST order?: No Is patient medically & hemodynamically stable?: Yes Patient assessed for mobility or mobilized this visit?: Yes 09/13/18 12:17 Consult to Senior Account Clerk [CONS] Routine Reason for SW Consult: placement - Constitutional Vitals: Temp Pulse Resp BP Pulse Ox 98.1 F 84 16 136/67 96 09/14/18 11:28 09/14/18 11:28 09/14/18 11:28 09/14/18 11:28 09/14/18 11:28 General appearance: Present: A&O X 3, no acute distress, answers questions appropriately Exam: Gen: Alert, awake, Oriented to time,place and person Chest: Diminished breath sounds B/L, No wheezing, No crackles, No rales Heart: S1S2+ RRR No murmurs Abd: Soft, NT, BS +, No organomegaly Ext: No edema, pulses are palpable, No calf tenderness Neuro : No acute focal neuro deficits noticed Skin: No rash. - Patient Status Disposition: Transfer SNF Condition: Good Overall status at discharge: patient is back to baseline - Discharge Instructions Follow Up With: Shakeel Cazares DO [Primary Care Provider] - - Diet and Activity Activity: increase activity as tolerated Diet: low salt diet
--- NOTE | 2018-09-14 14:20 | Physician Discharge Referral ---
ExtendedCare Referral Info Transfer To: F Provider in Charge after Transfer: PCP Institutional Level of Care: Skilled - Diagnosis (1) UTI (urinary tract infection) Status: Acute (2) Dizziness Status: Acute (3) Dementia Status: Chronic (4) CAD (coronary artery disease) Status: Chronic (5) History of pulmonary embolus (PE) Status: Chronic (6) HFrEF (heart failure with reduced ejection fraction) Status: Chronic (7) DVT prophylaxis Status: Acute - Transfer Medications Prescriptions: Meclizine [Antivert] 12.5 mg PO TID PRN #15 tablet PRN Reason: Vertigo cephALEXin [Keflex] 500 mg PO TID 2 Days #6 capsule Home Medications: Apixaban [Eliquis] 5 mg PO BID 09/10/18 [History] Aspirin [Lo-Dose Aspirin EC] 81 mg PO DAILY 09/10/18 [History] Carvedilol [Coreg] 6.25 mg PO BID 09/10/18 [History] Donepezil [Aricept] 5 mg PO DAILY 09/10/18 [History] Furosemide [Lasix] 20 mg PO DAILY 09/10/18 [History] Lisinopril [Zestril] 5 mg PO DAILY 09/10/18 [History] Memantine HCl 10 mg PO DAILY 09/10/18 [History] Multivitamin [One Daily Essential] 1 tab PO DAILY 09/10/18 [History] Nitrofurantoin [Macrodantin] 50 mg PO HS 09/10/18 [History] Omeprazole [PriLOSEC] 20 mg PO HS 09/10/18 [History] Potassium Chloride 10 meq PO DAILY 09/10/18 [History] Trazodone HCl 100 mg PO HS 09/10/18 [History] Meclizine [Antivert] 12.5 mg PO TID PRN #15 tablet 09/14/18 [Rx] cephALEXin [Keflex] 500 mg PO TID 2 Days #6 capsule 09/14/18 [Rx] Allergies/Adverse Reactions: Allergy/AdvReac Type Severity Reaction Status Date / Time ciprofloxacin [From Cipro] Allergy Hives Verified 09/10/18 20:41 - Respiratory Orders Smoking Cessation: Smoking cessation has been advised. For more information, call the [place] Tobacco Quit Line at 2-256-YSSH-NOW. CERTIFICATION: I certify that the transfer of the above named patient to an Extended Care Facility is necessary for the continuing treatment of the diagnosis listed. The above information is true and accurate reflection of patient's current condition. Confidential - Redisclosure prohibited without a patient's written consent.
== END 2018-09-14 17:22 | DRG 641 ==
LOC: 3BNU 09:14 → EMEROOARM 09:14 → 3BNU 16:20 → SUATTDRO 09-11 12:40
PROVIDERS: ADMIT Internal Medicine Nephrology; ATTEND Family Medicine